=== PATIENT | female | born 1945 | race Caucasian/White ===

== ENCOUNTER → 2018-12-28 | Outpatient (CLI) | payer MEDICARE ==
--- NOTE | 2018-12-28 12:02 | CT ---
EXAMINATION TYPE: CT chest wo con DATE OF EXAM: 12/28/2018 COMPARISON: HISTORY: Increasing SOB CT DLP: 588.6 mGycm. Automated Exposure Control for Dose Reduction was Utilized. TECHNIQUE: CT scan of the thorax is performed without IV contrast. FINDINGS: LUNGS: There is a 7 mm calcified granuloma left lower lobe. Central and basilar bronchiectasis noted. Linear changes involving the lungs are most typical of atelectasis or scar. No significant interlobu lar septal thickening. Apical pleural thickening or scarring. No pneumothorax or pleural effusion. Atherosclerotic change aorta and coronary artery calcification noted. No diagnostic evidence of aneur ysm of the aorta. Upper abdominal structures demonstrate no definite acute process.. MEDIASTINUM: Lack of IV contrast is noted to limit evaluation for mediastinal and especially hilar ad enopathy. There are no definitive greater than 1 cm hilar or mediastinal lymph nodes. No cardiomega ly or pericardial effusion is seen. OTHER: Postsurgical change left shoulder.. IMPRESSION: 1. Mild Central and basilar bronchiectasis with no diagnostic evidence of interstitial lung disease. 2. Left lower lobe calcified granuloma 3. Coronary artery calcification.
== END | disposition home or self-care (01) ==
LOC: RADCTMAIN 11:20
PROVIDERS: ATTEND Internal Medicine Critical Care Medicine
DX: J47.9 Bronchiectasis, uncomplicated (principal); J84.10 Pulmonary fibrosis, unspecified; I25.10 Atherosclerotic heart disease of native coronary artery without angina pectoris; Z88.8 Allergy status to other drugs, medicaments and biological substances
CPT/HCPCS: 71250

== ENCOUNTER 2020-08-08 08:40 | Day surgery (SDC) | payer MEDICARE ==
[2020-08-07 12:39] VITALS: BMI 29.5
[2020-08-08 08:57] VITALS: TEMP 98.1
[2020-08-08] MEDS ORDERED: LIDOCAINE 1% (10MG/ML) FOR IV START INTRADERMA ONE (09:08)
[2020-08-08] MEDS ORDERED: LACTATED RINGERS 1,000 ML IV ONE (09:08)
[2020-08-08] MEDS ORDERED: PROPOFOL 10 MG/ML 20 ML VIAL IV ONE (09:33)
--- NOTE | 2020-08-08 09:49 | P.PCN ---
Date of Procedure: 08/08/20 Procedure(s) Performed: BRIEF HISTORY: Patient is a 75-year-old pleasant female scheduled for an elective colonoscopy as a part of screening for colorectal neoplasia. Her last colonoscopy was 10 years ago. PROCEDURE PERFORMED: Colonoscopy. With snare polypectomy. PREOPERATIVE DIAGNOSIS: Screening for colon cancer. IV sedation per Anesthesia. PROCEDURE: After informed consent was obtained, the patient, was brought into the endoscopy unit. IV sedation was administered by Anesthesia under continuous monitoring. Digital rectal examination was normal. Initially the Olympus CF-160 flexible video colonoscope was then inserted in the rectum, gradually advanced into the cecum without any difficulty. Careful examination was performed as the scope was gradually being withdrawn. Ileocecal valve and the appendiceal orifice were visualized and appeared normal. Prep was excellent. Mucosa of the cecum, ascending colon, appeared normal. The transverse colon there was a 5 mm sessile polyp removed by snare polypectomy. Rest of the transverse colon, descending colon, sigmoid colon, and rectum appeared normal. Scattered left sided diverticulosis seen. Retroflexion was performed in the rectum and no lesions were seen. The patient tolerated the procedure well. IMPRESSION: 5 mm sessile transverse colon polyp status post polypectomy Scattered sigmoid diverticulosis RECOMMENDATIONS: Findings of this examination were discussed with the patient as well as a family.. She was advised to follow with the biopsy results. If the biopsy shows an adenoma she can have a repeat colonoscopy in 5 years.
[2020-08-08 10:07] VITALS: BP 134/74; PULSE 73; RESP 20
== END 2020-08-08 10:45 | disposition home or self-care (01) ==
LOC: ORWHC2ENDO 08:40
PROVIDERS: ATTEND Internal Medicine Gastroenterology
DX: Z12.11 Encounter for screening for malignant neoplasm of colon (principal); D12.3 Benign neoplasm of transverse colon; K57.30 Diverticulosis of large intestine without perforation or abscess without bleeding; I10 Essential (primary) hypertension; E78.5 Hyperlipidemia, unspecified; J45.909 Unspecified asthma, uncomplicated; F41.9 Anxiety disorder, unspecified; F32.9 Major depressive disorder, single episode, unspecified; Z79.890 Hormone replacement therapy; Z79.899 Other long term (current) drug therapy; Z88.8 Allergy status to other drugs, medicaments and biological substances; Z98.890 Other specified postprocedural states
CPT/HCPCS: 88305; 45385; J2704

== ENCOUNTER → 2021-10-21 | Outpatient (CLI) | payer MEDICARE ==
[2021-10-21 10:08] VITALS: BP 130/79; PULSE 77; RESP 18; TEMP 97.9
--- NOTE | 2021-10-21 13:16 | P.HPOB ---
History of Present Illness H&P Date: 10/21/21 Chief Complaint: The patient is here for her routine gynecologic exam. This is a 76-year-old 013 with an LMP of 1997. The patient is here to establish with this office. It has been about 10 years since her last pelvic exam. She previously saw Dr. Chan for her gynecologic care. She states about 2 weeks ago she had a small amount of bleeding from the vaginal opening. During a scan of 3 days, she had a few drops of blood noted each day. Prior to that time she did not have any postmenopausal bleeding and has not had any since then. She denies any pain or cramping. She denies any recent sexual activity. She denies inserting anything into the vagina or any trauma. Review of Systems The patient's weight has been stable over the last year. Over the past 11 years, she thinks she has gained about 40 pounds. She denies respiratory, cardiac, or G.I. problems. She denies any symptoms of depression. 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 History of Any Multi-Drug Resistant Organisms: None Reported Past Surgical History: Orthopedic Surgery Additional Past Surgical History / Comment(s): rt shoulder rotator cuff, colonoscopy 2020(next after 5yr). Past Anesthesia/Blood Transfusion Reactions: Motion Sickness Additional Past Anesthesia/Blood Transfusion Reaction / Comment(s): "hard time waking me up" Past Psychological History: Anxiety Additional Psychological History / Comment(s): OCD Smoking Status: Never smoker Past Alcohol Use History: None Reported Past Drug Use History: None Reported Additional History: She has been since 1969 and is not sexually active. 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 - Past Family History Mother Family Medical History: Cancer Additional Family Medical History / Comment(s): Pancreatic cancer. Father Family Medical History: Myocardial Infarction ([place]) Brother(s) Family Medical History: Cancer Additional Family Medical History / Comment(s): Lung cancer. Medications and Allergies Home Medications Medication Instructions Recorded Confirmed Type Fluticasone/Salmeterol [Advair 1 puff INHALATION BID 04/14/14 10/21/21 History 100-50 Diskus] Levothyroxine Sodium [Synthroid] 88 mcg PO DAILY 04/14/14 10/21/21 History Liothyronine Sodium [Cytomel] 5 mcg PO DAILY 04/14/14 10/21/21 History Cetirizine HCl [Zyrtec] 10 mg PO DAILY 01/05/15 10/21/21 History ALPRAZolam [Xanax] 0.5 mg PO HS 08/07/20 10/21/21 History Atorvastatin [Lipitor] 20 mg PO HS 08/07/20 10/21/21 History Azelastine HCl [Astepro] 1 spray NASAL DAILY 08/07/20 10/21/21 History FLUoxetine HCL [Sarafem] 60 mg PO HS 08/07/20 10/21/21 History Metoprolol Succinate (ER) [Toprol 25 mg PO DAILY 08/07/20 10/21/21 History Xl] Naltrexone HCl [Revia] 50 mg PO BID 08/07/20 10/21/21 History hydrOXYzine HCL [Atarax] 25 mg PO BID 08/07/20 10/21/21 History Calcium Carb/Vitamin D3/Vit K1 1 cap PO DAILY 10/21/21 10/21/21 History [Citracal-D3 500 mg Soft Chew] Cholecalciferol [Vitamin D3 (25 25 mcg PO DAILY 10/21/21 10/21/21 History Mcg = 1000 Iu)] Clobetasol Propionate [Clobex .05% 1 pump TOPICAL DIRECTED 10/21/21 10/21/21 History Shampoo] Fluticasone Propion/Salmeterol 1 inhalation PO DAILY 10/21/21 10/21/21 History [Wixela 100-50 Inhub] Magnesium 250 mg PO DAILY 10/21/21 10/21/21 History Phentermine/Topiramate [Qsymia 7.5 1 cap PO QAM 10/21/21 10/21/21 History mg-46 mg Capsule] Zinc Gluconate [Zinc] 18.75 mg PO DIRECTED 10/21/21 10/21/21 History guaiFENesin [Mucinex] 600 mg PO DAILY 10/21/21 10/21/21 History Allergies Allergy/AdvReac Type Severity Reaction Status Date / Time diphenhydramine HCl Allergy Rapid Verified 10/21/21 10:02 [From Benadryl] Heart Rate pollen,dust,grass,mold Allergy Unknown Uncoded 10/21/21 10:02 Exam Vital Signs Temp Pulse Resp BP Pulse Ox 10/21/21 10:03 97.9 F 77 18 130/79 96 Intake and Output 10/20/21 10/21/21 10/21/21 22:59 06:59 14:59 Other: Weight 86.636 kg Height 5 feet 5 inches, weight 191 pounds, BMI 31.8. This is a well-developed well-nourished white female who is alert and oriented times 3 in no acute distress. HEENT: Within normal limits. NECK: Supple without mass or thyromegaly. CHEST AND LUNGS: Clear to auscultation. HEART: Regular rate and rhythm. BREASTS: Are without mass or discharge. AXILLARY EXAM: Negative for adenopathy. BACK: Negative for CVA tenderness. ABDOMEN: Soft, nontender, without palpable masses. PELVIC EXAM: Normal external genitalia with mild to moderate atrophy. At the urethral opening there is flush she tissue which is segmental (not circumferential) along the posterior aspect. It is about 1 cm in its largest dimension. The color this tissue is reddish-brown and has a benign appearance. The tissue is soft and nontender. Cervix and vagina appear normal with mild to moderate atrophy. There is no unusual discharge. There is no evidence of prolapse. There is no evidence of blood in the vagina. The uterus is midposition, nongravid size and nontender. There are no palpable adnexal masses or tenderness. RECTAL EXAM: Rectovaginal exam is negative for mass or tenderness and is nega tive for occult blood. EXTREMITIES: Nontender. IMPRESSION: 1. 76-year-old menopausal female with a small amount of postmenopausal bleeding 2 weeks ago. 2. 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 Differential diagnosis for this finding would also include urethral prolapse, and less likely other urethral neoplasm. 3. Differential diagnosis for the small postmenopausal bleeding will include bleeding periurethral tissue, uterine bleeding, vaginal mucosa bleeding from atrophy, and less likely hematuria or blood from the rectum. I feel that most likely the bleeding represented a small amount of blood from the urethral caruncle. PLAN: 1. Pap smear cotest was performed. Her cervical screening history is uncertain at this time. 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 Chan for any Pap smears that were done during the past 20 years. We will determine if Pap smears can be discontinued after the records and current Pap smear results are obtained. 2. Self breast awareness was discussed with the patient. We have also discussed symptoms associated with inflammatory breast cancer. 3. The patient states she had a screening mammogram done last week at [facility]. She states she will try to get me a copy of the report. I have recommended that she have this done yearly. 4. Pelvic ultrasound was recommended to evaluate the endometrial thickness. The order slip was given to the patient for this. 5. We have discussed the tissue at the urethral opening. She was advised to very gently dab the opening, if needed, after voiding. She will be referred to Dr. Quinn, the urologist, who took care of her 's urological problems. I will have him evaluate the periurethral tissue to determine if biopsy or removal is warranted. 6.Osteoporosis prevention was discussed. I have stressed the importance of adequate calcium, vitamin D and regular exercise. Recommended amounts of calcium and vitamin D were also discussed. She states bone density testing has been done through her radio journalist, Dr. Ly. She will continue to have this type of testing done through him. 7. She has completed her Covid vaccination series and did receive a booster. 8. Weight control was discussed with the patient. I have stressed the importance of good nutrition, regular meals, adequate fiber, and regular exercise. 9. She was advised to return in one year for her annual well woman exam and as needed.
== END ==
LOC: WWCWWP 09:52
PROVIDERS: ATTEND Obstetrics & Gynecology
DX: Z01.419 Encounter for gynecological examination (general) (routine) without abnormal findings (principal); I10 Essential (primary) hypertension; E03.9 Hypothyroidism, unspecified; J45.909 Unspecified asthma, uncomplicated; E78.5 Hyperlipidemia, unspecified; F41.9 Anxiety disorder, unspecified; Z79.890 Hormone replacement therapy; Z88.8 Allergy status to other drugs, medicaments and biological substances; Z91.09 Other allergy status, other than to drugs and biological substances; N95.0 Postmenopausal bleeding; Z78.0 Asymptomatic menopausal state

== ENCOUNTER → 2021-11-09 | Outpatient (CLI) | payer MEDICARE ==
--- NOTE | 2021-11-09 21:32 | US ---
EXAMINATION TYPE: US pelvic complete DATE OF EXAM: 11/09/2021 COMPARISON: NONE CLINICAL HISTORY: N95.0 PMB. Postmenopausal bleeding. Hx 1 miscarriage. . TECHNIQUE: Transvaginal (TV) and Transabdominal (TA) . Transabdominal sonographic images of the pel vis were acquired. Transvaginal sonographic images were medically necessary to better assess the fol lowing anatomy: Ovaries, endometrium. Date of LMP: EXAM MEASUREMENTS: Uterus: 5.6 x 4.1 x 2.8 cm Endometrial Stripe: 0.23 cm Right Ovary: 2.9 x 2.2 x 2.5 cm Left Ovary: Obscured 1. Uterus: Anteverted Appears very heterogeneous. Limited due to shadowing. Many hyperechoic areas seen throughout the uterus. Largest hyperechoic area measures 0.4 x 0.4 x 0.3 cm. Subcentimeter anec hoic areas seen in cervix. 2. Endometrium: Anechoic fluid-appearing area seen within: 0.8 x 0.9 x 0.2 cm. 3. Right Ovary: Anechoic area seen: 1.9 x 2.0 x 2.1 cm. 4. Left Ovary: Obscured. 5. Bilateral Adnexa: Appear wnl 6. Posterior cul-de-sac: Appears wnl Uterus somewhat small in size and poorly visualized on both transabdominal and transvaginal investiga tion. It is markedly heterogeneous. Endometrial stripe not well seen. Hypoechoic areas could reflect small subcentimeter fibroids. Some dystrophic calcifications are thought present. No abnormal endomet rial thickening. Tiny amount of fluid in the endometrial canal. Left ovary not identified. Right ovary shows 2.1 cm thin-walled cyst. IMPRESSION: No suspicious thickening of the endometrium.
--- NOTE | 2021-11-10 10:32 | P.PN ---
Progress Note - Text Progress Note Date: 11/10/21 OUTPATIENT FOLLOW-UP NOTE TEST(S)/RESULTS: Pelvic ultrasound done on 11/09/2021 shows normal endometrial thickness of 2.3 mm. Small amount of fluid was noted within the endometrium. There was also a 2.1 cm right ovarian cyst which appears benign. METHOD OF NOTIFICATION: The patient was notified by phone. PATIENT COMMENTS: The patient did see Dr. Quinn who recommended an ultrasound of her kidneys and bladder scheduled for later this month. DIAGNOSIS: Small postmenopausal bleeding with no endometrial thickening. Small amount of fluid within the endometrium and 2.1 cm right ovarian cyst which are most likely benign findings. DISCUSSION: PLAN: Await evaluation by Dr. Quinn for possible hematuria. She is to wipe over the urinary opening very gently. We will plan on repeating pelvic ultrasound in one year to reevaluate the ovarian cyst.
== END | disposition home or self-care (01) ==
LOC: RADUSWWP 15:26
PROVIDERS: ATTEND Obstetrics & Gynecology
DX: N95.0 Postmenopausal bleeding (principal)
CPT/HCPCS: 76830; 76856

== ENCOUNTER → 2021-11-19 | Outpatient (CLI) | payer MEDICARE ==
--- NOTE | 2021-11-20 07:15 | US ---
EXAMINATION TYPE: US kidneys/renal and bladder DATE OF EXAM: 11/19/2021 COMPARISON: NONE CLINICAL HISTORY: R31.0 GROSS HEMATURIA. hematuria EXAM MEASUREMENTS: Right Kidney: 8.4 x 3.5 x 4.1 cm Left Kidney: 10.6 x 4.9 x 4.8 cm Right Kidney: small in size Left Kidney: no evidence of hydronephrosis Bladder: not fully distended Bilateral Jets seen: no There is no evidence for hydronephrosis at this point in time. No nephrolithiasis is seen. No peggy s are identified. The urinary bladder is anechoic. Bilateral ureteral jets are seen. IMPRESSION: Diminutive right kidney.
== END | disposition home or self-care (01) ==
LOC: RADUSWWP 15:30
PROVIDERS: ATTEND Urology
DX: N27.0 Small kidney, unilateral (principal)
CPT/HCPCS: 76770

== ENCOUNTER → 2022-11-09 | Outpatient (CLI) | payer MEDICARE ==
[2022-11-09 09:23] VITALS: BP 123/70; PULSE 79; RESP 16; TEMP 97
--- NOTE | 2022-11-09 10:10 | P.HPOB ---
History of Present Illness H&P Date: 11/09/22 Chief Complaint: The patient is here for her routine gynecologic exam and ma mmogram. This is a 77-year-old 013 with an LMP of 1997. The patient is without gynecologic complaints and denies any postmenopausal bleeding. Review of Systems The patient is unsure of her weight and states she no seen needs to lose weight. She declined being weighed today. She denies respiratory, cardiac, or GI problems. She recently got over bronchitis and is doing better. 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 Seasonal ALLERGIES. 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 History of Any Multi-Drug Resistant Organisms: None Reported Past Surgical History: Orthopedic Surgery Additional Past Surgical History / Comment(s): rt shoulder rotator cuff. Colonoscopy 2020(next after 5yr). Past Anesthesia/Blood Transfusion Reactions: Motion Sickness Additional Past Anesthesia/Blood Transfusion Reaction / Comment(s): "hard time waking me up" Past Psychological History: Anxiety Additional Psychological History / Comment(s): OCD Smoking Status: Never smoker Past Alcohol Use History: Rare (4 per year.) Past Drug Use History: None Reported Additional History: She has been since 1970 and is not sexually active. 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 - Past Family History Mother Family Medical History: Cancer Additional Family Medical History / Comment(s): Pancreatic cancer. Father Family Medical History: Myocardial Infarction ([place]) Brother(s) Family Medical History: Cancer Additional Family Medical History / Comment(s): Lung cancer. Medications and Allergies Home Medications Medication Instructions Recorded Confirmed Type Levothyroxine Sodium [Synthroid] 88 mcg PO DAILY 04/14/14 11/09/22 History Liothyronine Sodium [Cytomel] 5 mcg PO DAILY 04/14/14 11/09/22 History Cetirizine HCl [Zyrtec] 10 mg PO DAILY 01/05/15 11/09/22 History ALPRAZolam [Xanax] 0.5 mg PO HS 08/07/20 11/09/22 History Atorvastatin [Lipitor] 20 mg PO HS 08/07/20 11/09/22 History Azelastine HCl [Astepro] 1 spray NASAL DAILY 08/07/20 11/09/22 History FLUoxetine HCL [Sarafem] 60 mg PO HS 08/07/20 11/09/22 History Metoprolol Succinate (ER) [Toprol 25 mg PO DAILY 08/07/20 11/09/22 History Xl] Naltrexone HCl [Revia] 50 mg PO BID 08/07/20 11/09/22 History hydrOXYzine HCL [Atarax] 25 mg PO BID 08/07/20 11/09/22 History Calcium Carb/Vitamin D3/Vit K1 1 cap PO DAILY 10/21/21 11/09/22 History [Citracal-D3 500 mg Soft Chew] Cholecalciferol [Vitamin D3 (25 25 mcg PO DAILY 10/21/21 11/09/22 History Mcg = 1000 Iu)] Clobetasol Propionate [Clobex .05% 1 pump TOPICAL DIRECTED 10/21/21 11/09/22 History Shampoo] Fluticasone Propion/Salmeterol 1 inhalation PO DAILY 10/21/21 11/09/22 History [Wixela 100-50 Inhub] Magnesium 250 mg PO DAILY 10/21/21 11/09/22 History Phentermine/Topiramate [Qsymia 7.5 1 cap PO QAM 10/21/21 11/09/22 History mg-46 mg Capsule] Zinc Gluconate [Zinc] 18.75 mg PO DIRECTED 10/21/21 11/09/22 History guaiFENesin [Mucinex] 600 mg PO DAILY 10/21/21 11/09/22 History Inulin/Chromium Picolinate [Fiber 1 tab PO DAILY 11/09/22 11/09/22 History Gummies Chew] Multivitamin [Multivitamins Adult 1 tablet PO DAILY 11/09/22 11/09/22 History Gummies] Turmeric Root Extract [Turmeric] 500 mg PO DAILY 11/09/22 11/09/22 History Vitamin B Complex 1 cap PO DAILY 11/09/22 11/09/22 History Allergies Allergy/AdvReac Type Severity Reaction Status Date / Time diphenhydramine HCl Allergy Rapid Verified 11/09/22 09:07 [From Benadryl] Heart Rate pollen,dust,grass,mold Allergy Unknown Uncoded 11/09/22 09:07 Exam Vital Signs Temp Pulse Resp BP Pulse Ox 11/09/22 09:09 97.0 F L 79 16 123/70 95 Height and weight were refused by the patient. This is a well-developed well-nourished white female who is alert and oriented times 3 in no acute distress. HEENT: Within normal limits. NECK: Supple without mass or thyromegaly. CHEST AND LUNGS: Clear to auscultation. HEART: Regular rate and rhythm. BREASTS: Are without mass or discharge. AXILLARY EXAM: Negative for adenopathy. BACK: Negative for CVA tenderness. ABDOMEN: Soft, nontender, without palpable masses. PELVIC EXAM: Normal external genitalia with mild to moderate atrophy. There is a urethral caruncle which appears benign and unchanged. This does not appear inflamed. Cervix and vagina appear normal is mild to moderate atrophy. There is no unusual discharge. There is no evidence of prolapse. The uterus is midposition, nongravid size and nontender. There are no palpable adnexal masses or tenderness. RECTAL EXAM: Rectovaginal exam is negative for mass or tenderness and is negative for occult blood. EXTREMITIES: Nontender. IMPRESSION: 1. 77-year-old menopausal female with benign-appearing urethral caruncle which is unchanged. Otherwise unremarkable gynecologic exam. 2. History of benign-appearing 2.1cm right ovarian cyst and small endometrial fluid by ultrasound on 11/09/2021. PLAN: 1. Pap smears have been discontinued. 2. Self breast awareness was discussed with the patient. We have also discussed symptoms associated with inflammatory breast cancer. 3. Screening mammogram will be done today. 4. Pelvic ultrasound was recommended as follow-up for the os menopausal right ovarian cyst and endometrial fluid noted on her 11/09/21 ultrasound. The order slip was given to the patient for this. 5. Osteoporosis prevention was discussed. I have stressed the importance of adequate calcium, vitamin D and regular exercise. Recommended amounts of calcium and vitamin D were also discussed. She states she has done bone density testing through her quilt maker and the last one was about 5 years ago and was normal, according to the patient. She would like to have this testing done through me in the future. We will plan on repeating the bone density test here in 1 year at her annual well woman exam. 6. She was advised to return in one year for her annual well woman exam.
--- NOTE | 2022-11-10 09:23 | MM ---
Reason for Exam: Screening (asymptomatic). Last mammogram was performed 1 year(s) and 1 month(s) ago. Patient History: Menarche at age 13. First Full-Term at age 30. Late child-bearing (after 30). Postmenopausal. Patient has history of breast feeding. Estrogen and Progesterone, starting at age 51 for 5 years. Risk Values: Hillary 5 year model risk: 2.4%. NCI Lifetime model risk: 4.6%. Prior Study Comparison: 07/21/2018 Bilateral MG 3D screening mammo w/cad, [facility]. 09/23/2020 Bilateral MG 3D screening mammo w/cad, [facility]. 10/15/2021 Bilateral MG 3D screening mammo w/cad, [facility]. Tissue Density: The breast tissue is heterogeneously dense. This may lower the sensitivity of mammography. Findings: Analyzed By CAD. There are benign-appearing round and linear calcifications bilaterally redemonstrated. Asymmetric prominent tissue anterior upper right breast mimicking distortion has similar appearance to prior mammograms. There is no suspicious group of microcalcifications or new suspicious mass in either breast. Overall Assessment: Benign, BI-RAD 2 Management: Screening Mammogram of both breasts in 1 year. . Patient should continue monthly self-breast exams. A clinical breast exam by your physician is recommended on an annual basis. This exam should not preclude additional follow-up of suspicious palpable abnormalities. Note on Hillary scores and lifetime risk: 1. A Hillary score greater than 3% is considered moderate risk. If this is the case, consider specialist referral to assess eligibility for a risk reducing agent. 2. If overall lifetime risk for the development of breast cancer is 20% or higher, the patient may qualify for future screening with alternating mammogram and breast MRI. Electronically signed and approved by: Federico Minaya M.D.
== END ==
LOC: WWCWWP 09:01
PROVIDERS: ATTEND Obstetrics & Gynecology
DX: Z12.31 Encounter for screening mammogram for malignant neoplasm of breast (principal); Z01.419 Encounter for gynecological examination (general) (routine) without abnormal findings; E03.9 Hypothyroidism, unspecified; E78.5 Hyperlipidemia, unspecified; F41.9 Anxiety disorder, unspecified; F42.9 Obsessive-compulsive disorder, unspecified; I10 Essential (primary) hypertension; J45.909 Unspecified asthma, uncomplicated; N36.2 Urethral caruncle; Z79.51 Long term (current) use of inhaled steroids; Z80.1 Family history of malignant neoplasm of trachea, bronchus and lung; Z82.49 Family history of ischemic heart disease and other diseases of the circulatory system; Z88.8 Allergy status to other drugs, medicaments and biological substances; Z79.890 Hormone replacement therapy
CPT/HCPCS: 77063; 77067

== ENCOUNTER → 2022-11-25 | Outpatient (CLI) | payer MEDICARE ==
--- NOTE | 2022-11-26 06:31 | US ---
EXAMINATION TYPE: US pelvis complete transvag DATE OF EXAM: 11/25/2022 COMPARISON: Pelvic ultrasound November 09, 2021 CLINICAL INDICATION: Female, 77 years old with history of N83.00 CYST OF OVARY; Follow up ovarian cys t. TECHNIQUE: Transvaginal (TV) and Transabdominal (TA) . Transabdominal sonographic images of the pel vis were acquired. 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 Uterus: Retroverted Appears small in size. Heterogenous. Peripheral echogenic foci seen. 2. Endometrium: wnl 3. Right Ovary: cystic appearing lesion - 2.3 x 2.0 x 2.0 cm 4. Left Ovary: Obscured by overlying bowel gas 5. Bilateral Adnexa: wnl 6. Posterior cul-de-sac: no free fluid Small size uterus correlates with patient's postmenopausal age. Some dystrophic calcifications are fe lt present. Endometrial stripe poorly visualized. No free fluid. Left ovary not seen. Right ovary has fairly stable 2.3 x 2.0 x 2.0 cm simple appearing thin-walled cy st. IMPRESSION: Stable 2.3 cm thin-walled cyst in the right adnexal presumed ovary.
== END | disposition home or self-care (01) ==
LOC: RADUSWWP 14:57
PROVIDERS: ATTEND Obstetrics & Gynecology
DX: N83.01 Follicular cyst of right ovary (principal); R93.89 Abnormal findings on diagnostic imaging of other specified body structures
CPT/HCPCS: 76830; 76856

== ENCOUNTER 2022-12-24 09:28 | Inpatient (IN) | payer MEDICARE ==
[2022-12-24] MEDS ORDERED: SODIUM CHLORIDE 0.9% 1,000 ML IV STA (09:44)
[2022-12-24] MEDS ORDERED: ONDANSETRON 4 MG/2 ML VIAL IVP STA (09:44)
[2022-12-24] MEDS ORDERED: HYDROmorphone 0.5 MG/0.5 ML SYRINGE IVP STA (09:45)
--- NOTE | 2022-12-24 09:48 | ED ---
General Adult HPI - General Chief complaint: Abdominal Pain Stated complaint: abd pain,chills Time Seen by Provider: 12/24/22 09:30 Source: patient, RN notes reviewed, old records reviewed Mode of arrival: ambulatory Limitations: no limitations - History of Present Illness Initial comments: This is 77-year-old female presents emergency department stating she has significant abdominal pain. Patient states that yesterday when she woke up and didn't feel good she vomited times one and there are 3 she remained nauseated. Patient states she's had no diarrhea. Patient states the pain is diffuse in her abdomen is no specific spot. Patient denies any fever chills. Patient denies any dysuria hematuria urinary frequency. Patient denies any chest pain shortness of breath or difficulty breathing. Patient denies any back pain. Patient states she's never had any abdominal surgeries. Patient denies lightheadedness or dizziness. - Related Data Home Medications Medication Instructions Recorded Confirmed Levothyroxine Sodium [Synthroid] 88 mcg PO DAILY 04/14/14 12/24/22 Liothyronine Sodium [Cytomel] 5 mcg PO DAILY 04/14/14 12/24/22 Cetirizine HCl [Zyrtec] 10 mg PO DAILY 01/05/15 12/24/22 ALPRAZolam [Xanax] 0.5 mg PO HS 08/07/20 12/24/22 Atorvastatin [Lipitor] 20 mg PO HS 08/07/20 12/24/22 Naltrexone HCl [Revia] 50 mg PO HS 08/07/20 12/24/22 hydrOXYzine HCL [Atarax] 25 mg PO HS 08/07/20 12/24/22 Albuterol Sulfate [Albuterol 2 puff PO RT-Q6H PRN 12/24/22 12/24/22 Sulfate Hfa] Clobetasol 0.05% Solution 1 applic TOPICAL HS PRN 12/24/22 12/24/22 Dupilumab [Dupixent Pen] 300 mg SQ Q28D 12/24/22 12/24/22 FLUoxetine HCL [PROzac] 60 mg PO DAILY 12/24/22 12/24/22 Fluticasone/Umeclidin/Vilanter 1 puff INHALATION RT-DAILY 12/24/22 12/24/22 [Trelegy Ellipta 100-62.5-25] Metoprolol Succinate (ER) [Toprol 25 mg PO DAILY 12/24/22 12/24/22 Xl] Allergies Allergy/AdvReac Type Severity Reaction Status Date / Time diphenhydramine HCl Allergy Rapid Verified 12/24/22 11:37 [From Benadryl] Heart Rate pollen,dust,grass,mold Allergy Unknown Uncoded 12/24/22 09:33 Review of Systems ROS Statement: Those systems with pertinent positive or pertinent negative responses have been documented in the HPI. ROS Other: All systems not noted in ROS Statement are negative. 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 Seasonal ALLERGIES. 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 History of Any Multi-Drug Resistant Organisms: None Reported Past Surgical History: Orthopedic Surgery Additional Past Surgical History / Comment(s): rt shoulder rotator cuff. Colonoscopy 2020(next after 5yr). Past Anesthesia/Blood Transfusion Reactions: Motion Sickness Additional Past Anesthesia/Blood Transfusion Reaction / Comment(s): "hard time waking me up" Past Psychological History: Anxiety Smoking Status: Never smoker Past Alcohol Use History: Rare Past Drug Use History: None Reported - Past Family History Mother Family Medical History: Cancer Additional Family Medical History / Comment(s): Pancreatic cancer. Father Family Medical History: Myocardial Infarction ([place]) Brother(s) Family Medical History: Cancer Additional Family Medical History / Comment(s): Lung cancer. General Exam - General Exam Comments Initial Comments: GENERAL: Patient is well-developed and well-nourished. Patient is nontoxic and well- hydrated and is in mild distress. ENT: Neck is soft and supple. No significant lymphadenopathy is noted. Oropharynx is clear. Moist mucous membranes. Neck has full range of motion without eliciting any pain. EYES: The sclera were anicteric and conjunctiva were pink and moist. Extraocular movements were intact and pupils were equal round and reactive to light. Eyelids were unremarkable. PULMONARY: Unlabored respirations. Good breath sounds bilaterally. No audible rales rhonchi or wheezing was noted. CARDIOVASCULAR: There is a regular rate and rhythm without any murmurs gallops or rubs. ABDOMEN: Soft and nontender with normal bowel sounds. SKIN: Skin is clear with no lesions or rashes and otherwise unremarkable. NEUROLOGIC: Patient is alert and oriented x3. Cranial nerves II through XII are grossly intact. Motor and sensory are also intact. Normal speech, volume and content. Symmetrical smile. MUSCULOSKELETAL: Normal extremities with adequate strength and full range of motion. LYMPHATICS: No significant lymphadenopathy is noted PSYCHIATRIC: Normal psychiatric evaluation. Limitations: no limitations Course Vital Signs 12/24/22 12/24/22 09:30 11:00 Temperature 97.5 F L 99.7 F H Pulse Rate 86 90 Respiratory 22 18 Rate Blood Pressure 181/80 181/87 O2 Sat by Pulse 98 97 Oximetry Medical Decision Making - Medical Decision Making Was pt. sent in by a medical professional or institution (, PA, COMPUTER ARCHITECT, urgent care, hospital, or group home...) When possible be specific @ -No Did you speak to anyone other than the patient for history (EMS, parent, family, police, friend...)? What history was obtained from this source @ -No Did you review nursing and triage notes (agree or disagree)? Why? @ -I reviewed and agree with nursing and triage notes Were old charts reviewed (outside hosp., previous admission, EMS record, old EKG, old radiological studies, urgent care reports/EKG's, group home records)? Report findings @ -I reviewed prior lab work on this patient Differential Diagnosis (chest pain, altered mental status, abdominal pain women, abdominal pain men, vaginal bleeding, weakness, fever, dyspnea, syncope, headache, dizziness, GI bleed, back pain, seizure, CVA, palpatations, mental health, musculoskeletal)? @ -Differential Abdominal Pain Women: Appendicitis, Cholecystitis, diverticulosis, ischemic bowel, pancreatitis, hepatitis, UTI, gastroenteritis, AAA, incarcerated hernia, bowel obstruction, constipation, inflammatory bowel, hepatitis, peptic ulcer disease, splenic infarction, perforated viscus, vulvitis, ovarian torsion, PID, kidney stone, placenta abruption, this is not meant to be an all-inclusive list EKG interpreted by me (3pts min.). @ -As above X-rays interpreted by me (1pt min.). @ -None done CT interpreted by me (1pt min.). @ -CT of the abdomen and pelvis show thickened bladder wall. And multiple air- fluid levels and small intestine U/S interpreted by me (1pt. min.). @ -None done What testing was considered but not performed or refused? (CT, X-rays, U/S, labs)? Why? @ -None What meds were considered but not given or refused? Why? @ -None Did you discuss the management of the patient with other professionals (professionals i.e. , PA, COMPUTER ARCHITECT, lab, RT, psych nurse, social work faculty member, braille translator, teacher, corporate responsibility officer, piano case maker)? Give summary @ -Spoke with Dr. Atkinson he agreed to admit the patient Was smoking cessation discussed for >3mins.? @ -No Was critical care preformed (if so, how long)? @ -No Were there social determinants of health that impacted care today? How? (Homelessness, low income, unemployed, alcoholism, drug addiction, transportation, low edu. Level, literacy, decrease access to med. care, correction, rehab)? @ -No Was there de-escalation of care discussed even if they declined (Discuss DNR or withdrawal of care, Hospice)? DNR status @ -No What co-morbidities impacted this encounter? (DM, HTN, Smoking, COPD, CAD, Cancer, CVA, ARF, Chemo, Hep., AIDS, mental health diagnosis, sleep apnea, morbid obesity)? @ -None Was patient admitted / discharged? Hospital course, mention meds given and route, prescriptions, significant lab abnormalities, going to OR and other pertinent info. @ -Patient had a urinary tract infection and some small intestinal fluid levels. I spoke with Dr. Atkinson after I gave the patient 2 g of Rocephin and the patient will be admitted and monitored in the hospital Undiagnosed new problem with uncertain prognosis? @ -No Drug Therapy requiring intensive monitoring for toxicity (Heparin, Nitro, Insulin, Cardizem)? @ -No Were any procedures done? @ -No Diagnosis/symptom? @ -Pyelonephritis Acute, or Chronic, or Acute on Chronic? @ -Acute Uncomplicated (without systemic symptoms) or Complicated (systemic symptoms)? @ -Complicated Side effects of treatment? @ -No Exacerbation, Progression, or Severe Exacerbation? @ -No Poses a threat to life or bodily function? How? (Chest pain, [place], [place], pneumonia, PE, COPD, DKA, ARF, appy, cholecystitis, CVA, Diverticulitis, Homicidal, Suicidal, threat to staff... and all critical care pts) @ -Yes this could lead to sepsis and end organ dysfunction Diagnosis/symptom? @ -Enteritis Acute, or Chronic, or Acute on Chronic? @ -Acute Uncomplicated (without systemic symptoms) or Complicated (systemic symptoms)? @ -Complicated Side effects of treatment? @ -none Exacerbation, Progression, or Severe Exacerbation] @ -no Poses a threat to life or bodily function? @ -no - Lab Data Result diagrams: 12/24/22 09:58 12/24/22 09:58 Lab Results 12/24/22 12/24/22 12/24/22 Range/Units 09:58 09:58 09:58 WBC 17.4 H (3.8-10.6) k/uL RBC 4.56 (3.80-5.40) m/uL Hgb 14.5 (11.4-16.0) gm/dL Hct 42.1 (34.0-46.0) % MCV 92.5 (80.0-100.0) fL MCH 31.9 (25.0-35.0) pg MCHC 34.5 (31.0-37.0) g/dL RDW 13.4 (11.5-15.5) % Plt Count 233 (150-450) k/uL MPV 7.6 Neutrophils % 80 % Lymphocytes % 8 % Monocytes % 9 % Eosinophils % 1 % Basophils % 0 % Neutrophils # 14.0 H (1.3-7.7) k/uL Lymphocytes # 1.4 (1.0-4.8) k/uL Monocytes # 1.6 H (0-1.0) k/uL Eosinophils # 0.2 (0-0.7) k/uL Basophils # 0.0 (0-0.2) k/uL Sodium 135 L (137-145) mmol/L Potassium 4.2 (3.5-5.1) mmol/L Chloride 104 (98-107) mmol/L Carbon Dioxide 20 L (22-30) mmol/L Anion Gap 11 mmol/L BUN 28 H (7-17) mg/dL Creatinine 1.30 H (0.52-1.04) mg/dL Est GFR (CKD-EPI)AfAm 46 (>60 ml/min/1.73 sqM) Est GFR (CKD-EPI)NonAf 40 (>60 ml/min/1.73 sqM) Glucose 214 H (74-99) mg/dL Plasma Lactic Acid Kory (0.7-2.0) mmol/L Calcium 9.2 (8.4-10.2) mg/dL Total Bilirubin 0.8 (0.2-1.3) mg/dL AST 27 (14-36) U/L ALT 31 (4-34) U/L Alkaline Phosphatase 106 (38-126) U/L Total Protein 6.8 (6.3-8.2) g/dL Albumin 4.0 (3.5-5.0) g/dL Amylase 44 (30-110) U/L Lipase 84 (23-300) U/L Urine Color Yellow Urine Appearance Turbid H (Clear) Urine pH 6.5 (5.0-8.0) Ur Specific [place] 1.018 (1.001-1.035) Urine Protein 2+ H (Negative) Urine Glucose (UA) Negative (Negative) Urine Ketones Negative (Negative) Urine Blood Moderate H (Negative) Urine Nitrite Negative (Negative) Urine Bilirubin Negative (Negative) Urine Urobilinogen <2.0 (<2.0) mg/dL Ur Leukocyte Esterase Large H (Negative) Urine RBC 32 H (0-5) /hpf Urine WBC >182 H (0-5) /hpf Urine WBC Clumps Many H (None) /hpf Ur Squamous Epith Cells 2 (0-4) /hpf Urine Bacteria Few H (None) /hpf Urine Mucus Rare H (None) /hpf 12/24/22 Range/Units 10:27 WBC (3.8-10.6) k/uL RBC (3.80-5.40) m/uL Hgb (11.4-16.0) gm/dL Hct (34.0-46.0) % MCV (80.0-100.0) fL MCH (25.0-35.0) pg MCHC (31.0-37.0) g/dL RDW (11.5-15.5) % Plt Count (150-450) k/uL MPV Neutrophils % % Lymphocytes % % Monocytes % % Eosinophils % % Basophils % % Neutrophils # (1.3-7.7) k/uL Lymphocytes # (1.0-4.8) k/uL Monocytes # (0-1.0) k/uL Eosinophils # (0-0.7) k/uL Basophils # (0-0.2) k/uL Sodium (137-145) mmol/L Potassium (3.5-5.1) mmol/L Chloride (98-107) mmol/L Carbon Dioxide (22-30) mmol/L Anion Gap mmol/L BUN (7-17) mg/dL Creatinine (0.52-1.04) mg/dL Est GFR (CKD-EPI)AfAm (>60 ml/min/1.73 sqM) Est GFR (CKD-EPI)NonAf (>60 ml/min/1.73 sqM) Glucose (74-99) mg/dL Plasma Lactic Acid Kory 1.3 (0.7-2.0) mmol/L Calcium (8.4-10.2) mg/dL Total Bilirubin (0.2-1.3) mg/dL AST (14-36) U/L ALT (4-34) U/L Alkaline Phosphatase (38-126) U/L Total Protein (6.3-8.2) g/dL Albumin (3.5-5.0) g/dL Amylase (30-110) U/L Lipase (23-300) U/L Urine Color Urine Appearance (Clear) Urine pH (5.0-8.0) Ur Specific [place] (1.001-1.035) Urine Protein (Negative) Urine Glucose (UA) (Negative) Urine Ketones (Negative) Urine Blood (Negative) Urine Nitrite (Negative) Urine Bilirubin (Negative) Urine Urobilinogen (<2.0) mg/dL Ur Leukocyte Esterase (Negative) Urine RBC (0-5) /hpf Urine WBC (0-5) /hpf Urine WBC Clumps (None) /hpf Ur Squamous Epith Cells (0-4) /hpf Urine Bacteria (None) /hpf Urine Mucus (None) /hpf Disposition Clinical Impression: Pyelonephritis, Ileus Disposition: ADMITTED IP TO THIS HOSP Referrals: None,Stated [REFERRING] - 1-2 days Time of Disposition: 12:14
[2022-12-24 10:12] LABS: Basophils % (A) 0 %; Eosinophils # (A) 0.2 k/uL (0-0.7); Eosinophils % (A) 1 %; HCT 42.1 % (34.0-46.0); HGB 14.5 gm/dL (11.4-16.0); Lymphocytes # (A) 1.4 k/uL (1.0-4.8); Lymphocytes % (A) 8 %; MCH 31.9 pg (25.0-35.0); MCHC 34.5 g/dL (31.0-37.0); MCV 92.5 fL (80.0-100.0); Mean Platelet Volume 7.6; Monocytes # (A) 1.6 k/uL (0-1.0); Monocytes % (A) 9 %; Neutrophils % (A) 80 %; Platelet Count 233 k/uL (150-450); RBC 4.56 m/uL (3.80-5.40); RDW 13.4 % (11.5-15.5); WBC 17.4 k/uL (3.8-10.6)
[2022-12-24 10:17] LABS: Appearance,Urine Turbid (Clear); Bacteria,Urine Few /hpf; Bilirubin,Urine Negative (Negative); Blood,Urine Moderate (Negative); Color,Urine Yellow; Glucose,Urine (UA) Negative (Negative); Ketones,Urine Negative (Negative); Leukocyte Esterase,Urine Large (Negative); Mucus,Urine Rare /hpf; Nitrite,Urine Negative (Negative); PH, Urine 6.5 (5.0-8.0); Protein,Urine 2+ (Negative); RBC,Urine 32 /hpf (0-5); Specific Gravity,Urine 1.018 (1.001-1.035); Squamous Epithelial Cell,Urine 2 /hpf (0-4); Urobilinogen,Urine <2.0 mg/dL (<2.0); WBC,Urine >182 /hpf (0-5)
[2022-12-24 10:21] LABS: ALT 31 U/L (4-34); AST 27 U/L (14-36); African American GFR (CKD) 46 (>60 ml/min/1.73 sqM); Alkaline Phosphatase 106 U/L (38-126); Amylase 44 U/L (30-110); Anion Gap 11 mmol/L; Blood Urea Nitrogen 28 mg/dL (7-17); Calcium 9.2 mg/dL (8.4-10.2); Carbon Dioxide 20 mmol/L (22-30); Chloride 104 mmol/L (98-107); Glucose 214 mg/dL (74-99); Lipase 84 U/L (23-300); Non-African American GFR(CKD) 40 (>60 ml/min/1.73 sqM); Potassium 4.2 mmol/L (3.5-5.1); Sodium 135 mmol/L (137-145); Total Bilirubin 0.8 mg/dL (0.2-1.3); Total Protein 6.8 g/dL (6.3-8.2)
--- NOTE | 2022-12-24 11:17 | CT ---
EXAMINATION TYPE: CT abdomen pelvis wo con DATE OF EXAM: 12/24/2022 COMPARISON: None HISTORY: 77-year-old female abdominal pain, Stomach pains, bloating, headache, feeling terrible CT DLP: 898.7 mGycm. Automated exposure control for dose reduction was used. TECHNIQUE: Contiguous axial scanning of the abdomen and pelvis without IV contrast. Coronal and sagit terrance reconstructions performed. FINDINGS: LUNG BASES: Coronary artery calcifications. Calcified granuloma left base. Strandy areas of atelectas is. No pleural effusion. LIVER/GB: No significant abnormality is appreciated. PANCREAS: No significant abnormality is seen. SPLEEN: Inferior hilar splenule. ADRENALS: No significant abnormality is seen. KIDNEYS: Mild perinephric stranding somewhat asymmetrically greater on the right. No hydronephrosis. BOWEL: Small hiatal hernia. Mild stool burden. Mildly redundant sigmoid colon. Segment of normal appe ndix noted. No pericolonic inflammatory change. Some prominent fluid-filled small bowel loops contain ing low in the pelvis. No dilated small bowel. LYMPH NODES: No significant abnormality is seen. OTHER: Moderate atherosclerotic calcifications infrarenal abdominal aorta. No free fluid or free air. PELVIS: Mild circumferential bladder wall thickening. Multiple pelvic phleboliths. Uterus anteverted. There is a 2.7 cm dominant follicle or functional cyst of the right ovary. BONES: Scattered moderate degenerative disc disease lower thoracic spine and L5-S1. Hypertrophic face t arthropathy with grade 1 anterolisthesis L4-L5. Mild degenerative change of both hips. IMPRESSION: 1. Small hiatal hernia. 2. Mild circumferential bladder wall thickening could be chronic for the patient. Correlate to exclu de cystitis. 3. Numerous fluid-filled small bowel loops in the pelvis may be transient. Consider a regional ileus or enteritis. 4. Some perinephric fat stranding could reflect underlying chronic kidney disease or senescent [place] e. However, the stranding is asymmetric to the right. Correlate to exclude the possibility of underly ing infection.
[2022-12-24] MEDS ORDERED: cefTRIAXone IN SWFI 1,000 MG/10 ML SYRINGE IVP STA (11:44)
[2022-12-24] MEDS ORDERED: ASPIRIN-ACET-CAFF 250-250-65MG 1 EACH TAB PO STA (11:52)
[2022-12-24] MEDS ORDERED: KETOROLAC 15 MG/ML 1 ML VIAL IVP STA (11:52)
[2022-12-24] MEDS ORDERED: SODIUM CHLORIDE 0.9% 1,000 ML IV ONE (12:16)
[2022-12-24] MEDS ORDERED: hydrOXYzine HCL 25 MG TAB PO PRN (12:18)
[2022-12-24] MEDS ORDERED: ALBUTEROL NEBULIZED 2.5 MG/3 ML INHALATION PRN (12:18)
--- NOTE | 2022-12-24 12:28 | P.HPIM ---
History of Present Illness -year-old pleasant female came in with complaints of abdominal pain in the epigastric area as well as suprapubic area significant severe. Patient denied any diarrhea patient has been nausea today and vomited few times yesterday. Edilberto navarro denied any fever at home but had low-grade fever here and is comparing of body aches. Patient denied any recent exposure to people with sinus symptoms. Patient denied any dysuria or increased urinary frequency. Patient had a computed tomography scan of the abdomen which showed mild circumferential bladder wall thickening which can be chronic or can be acute cystitis and numerous fluid-filled small bowel loops consistent with gastroenteritis and there is also some perinephric fat stranding which can be secondary to chronic kidney disease rather than pyelonephritis. Urine is significantly abnormal with highly elevated white count in the urine. REVIEW OF SYSTEMS: CONSTITUTIONAL: As mentioned in HPI HEENT: No recent visual problems or hearing problems. Denied any sore throat. CARDIOVASCULAR: No chest pain, orthopnea, PND, no palpitations, no syncope. PULMONARY: No shortness of breath, no cough, no hemoptysis. GASTROINTESTINAL: No diarrhea, no nausea, no vomiting, no abdominal pain. NEUROLOGICAL: No headaches, no weakness, no numbness. HEMATOLOGICAL: Denies any bleeding or petechiae. GENITOURINARY: Denies any burning micturition, frequency, or urgency. MUSCULOSKELETAL/RHEUMATOLOGICAL: Denies any joint pain, swelling, ENDOCRINE: Denies any polyuria or polydipsia. The rest of the 14-point review of systems is negative. PHYSICAL EXAMINATION: GENERAL: The patient is alert and oriented x3, not in any acute distress. Obese HEENT: Pupils are round and equally reacting to light. EOMI. No scleral icterus. No conjunctival pallor. Normocephalic, atraumatic. No pharyngeal erythema. No thyromegaly. CARDIOVASCULAR: S1 and S2 present. No murmurs, rubs, or gallops. PULMONARY: Chest is clear to auscultation, no wheezing or crackles. ABDOMEN: Soft, nontender, nondistended, normoactive bowel sounds. No palpable organomegaly. MUSCULOSKELETAL: No joint swelling or deformity. EXTREMITIES: No cyanosis, clubbing, or pedal edema. NEUROLOGICAL: Gross neurological examination did not reveal any focal deficits. SKIN: No rashes. Assessment and plan 1 possible sepsis: Secondary to viral gastroenteritis or urinary tract infection patient was started on IV fluids with the the symptoms of fever and body aches with Tylenol. I cannot rule out urinary tract infection, patient will be continued on Rocephin awaiting urine cultures and blood cultures. 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 Seasonal ALLERGIES. 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 History of Any Multi-Drug Resistant Organisms: None Reported Past Surgical History: Orthopedic Surgery Additional Past Surgical History / Comment(s): rt shoulder rotator cuff. Colonoscopy 2020(next after 5yr). Past Anesthesia/Blood Transfusion Reactions: Motion Sickness Additional Past Anesthesia/Blood Transfusion Reaction / Comment(s): "hard time waking me up" Past Psychological History: Anxiety Smoking Status: Never smoker Past Alcohol Use History: Rare Past Drug Use History: None Reported - Past Family History Mother Family Medical History: Cancer Additional Family Medical History / Comment(s): Pancreatic cancer. Father Family Medical History: Myocardial Infarction ([place]) Brother(s) Family Medical History: Cancer Additional Family Medical History / Comment(s): Lung cancer. Medications and Allergies Home Medications Medication Instructions Recorded Confirmed Type Levothyroxine Sodium [Synthroid] 88 mcg PO DAILY 04/14/14 12/24/22 History Liothyronine Sodium [Cytomel] 5 mcg PO DAILY 04/14/14 12/24/22 History Cetirizine HCl [Zyrtec] 10 mg PO DAILY 01/05/15 12/24/22 History ALPRAZolam [Xanax] 0.5 mg PO HS 08/07/20 12/24/22 History Atorvastatin [Lipitor] 20 mg PO HS 08/07/20 12/24/22 History Naltrexone HCl [Revia] 50 mg PO HS 08/07/20 12/24/22 History hydrOXYzine HCL [Atarax] 25 mg PO HS 08/07/20 12/24/22 History Albuterol Sulfate [Albuterol 2 puff PO RT-Q6H PRN 12/24/22 12/24/22 History Sulfate Hfa] Clobetasol 0.05% Solution 1 applic TOPICAL HS PRN 12/24/22 12/24/22 History Dupilumab [Dupixent Pen] 300 mg SQ Q28D 12/24/22 12/24/22 History FLUoxetine HCL [PROzac] 60 mg PO DAILY 12/24/22 12/24/22 History Fluticasone/Umeclidin/Vilanter 1 puff INHALATION RT-DAILY 12/24/22 12/24/22 History [Trelegy Ellipta 100-62.5-25] Metoprolol Succinate (ER) [Toprol 25 mg PO DAILY 12/24/22 12/24/22 History Xl] Allergies Allergy/AdvReac Type Severity Reaction Status Date / Time diphenhydramine HCl Allergy Rapid Verified 12/24/22 11:37 [From Benadryl] Heart Rate pollen,dust,grass,mold Allergy Unknown Uncoded 12/24/22 09:33 Physical Exam Vitals: Vital Signs Temp Pulse Resp BP Pulse Ox 12/24/22 11:00 99.7 F H 90 18 181/87 97 12/24/22 09:30 97.5 F L 86 22 181/80 98 Intake and Output 12/23/22 12/24/22 12/24/22 22:59 06:59 14:59 Other: Weight 86.183 kg Results CBC & Chem 7: 12/24/22 09:58 12/24/22 09:58 Labs: Abnormal Lab Results - Last 24 Hours (Table) 12/24/22 12/24/22 12/24/22 Range/Units 09:58 09:58 09:58 WBC 17.4 H (3.8-10.6) k/uL Neutrophils # 14.0 H (1.3-7.7) k/uL Monocytes # 1.6 H (0-1.0) k/uL Sodium 135 L (137-145) mmol/L Carbon Dioxide 20 L (22-30) mmol/L BUN 28 H (7-17) mg/dL Creatinine 1.30 H (0.52-1.04) mg/dL Glucose 214 H (74-99) mg/dL Urine Appearance Turbid H (Clear) Urine Protein 2+ H (Negative) Urine Blood Moderate H (Negative) Ur Leukocyte Esterase Large H (Negative) Urine RBC 32 H (0-5) /hpf Urine WBC >182 H (0-5) /hpf Urine WBC Clumps Many H (None) /hpf Urine Bacteria Few H (None) /hpf Urine Mucus Rare H (None) /hpf
[2022-12-24] MEDS: PANTOPRAZOLE 40 MG TABLET PO SCH (12:48)
[2022-12-24 13:00] LABS: Glucose,Whole Blood 197 mg/dL (70-110)
[2022-12-24] MEDS: INSULIN ASPART (NovoLOG) 100 UNIT/ML VIAL SQ SCH ×3 (13:00→21:26)
[2022-12-24] MEDS: HEPARIN SODIUM,PORCINE/PF 5,000 UNIT/0.5 ML SYRINGE SQ SCH (17:27)
[2022-12-24] MEDS: SODIUM CHLORIDE 0.9% 1,000 ML IV SCH ×2 (17:27→21:31)
[2022-12-24 17:50] LABS: Glucose,Whole Blood 219 mg/dL (70-110)
[2022-12-24] MEDS: ACETAMINOPHEN TAB 325 MG TAB PO PRN (18:14)
[2022-12-24 21:01] LABS: Glucose,Whole Blood 170 mg/dL (70-110)
[2022-12-24] MEDS: ATORVASTATIN 20 MG TAB PO SCH (21:26)
[2022-12-24] MEDS: ALPRAZolam 0.5 MG TAB PO PRN (21:40)
[2022-12-25] MEDS: HEPARIN SODIUM,PORCINE/PF 5,000 UNIT/0.5 ML SYRINGE SQ SCH ×4 (00:43→22:54)
[2022-12-25] MEDS: ACETAMINOPHEN TAB 325 MG TAB PO PRN ×4 (02:10→21:06)
[2022-12-25] MEDS: ONDANSETRON 4 MG/2 ML VIAL IVP PRN ×2 (02:53→09:09)
[2022-12-25 06:07] LABS: Glucose,Whole Blood 193 mg/dL (70-110)
[2022-12-25 06:40] LABS: Basophils % (A) 0 %; Eosinophils # (A) 0.1 k/uL (0-0.7); Eosinophils % (A) 1 %; HCT 38.7 % (34.0-46.0); HGB 12.5 gm/dL (11.4-16.0); Lymphocytes # (A) 0.9 k/uL (1.0-4.8); Lymphocytes % (A) 6 %; MCH 31.1 pg (25.0-35.0); MCHC 32.3 g/dL (31.0-37.0); MCV 96.5 fL (80.0-100.0); Mean Platelet Volume 7.9; Monocytes # (A) 1.7 k/uL (0-1.0); Monocytes % (A) 11 %; Neutrophils # (A) 11.5 k/uL (1.3-7.7); Neutrophils % (A) 80 %; Platelet Count 147 k/uL (150-450); RBC 4.01 m/uL (3.80-5.40); RDW 13.6 % (11.5-15.5); WBC 14.5 k/uL (3.8-10.6)
[2022-12-25] MEDS: INSULIN ASPART (NovoLOG) 100 UNIT/ML VIAL SQ SCH ×4 (06:42→22:53)
[2022-12-25] MEDS: LEVOTHYROXINE 88 MCG TAB PO SCH (06:42)
[2022-12-25] MEDS: PANTOPRAZOLE 40 MG TABLET PO SCH (06:42)
[2022-12-25 07:06] LABS: African American GFR (CKD) 44 (>60 ml/min/1.73 sqM); Anion Gap 6 mmol/L; Blood Urea Nitrogen 20 mg/dL (7-17); Calcium 7.6 mg/dL (8.4-10.2); Carbon Dioxide 19 mmol/L (22-30); Chloride 111 mmol/L (98-107); Glucose 182 mg/dL (74-99); Magnesium 1.9 mg/dL (1.6-2.3); Non-African American GFR(CKD) 38 (>60 ml/min/1.73 sqM); Potassium 4.3 mmol/L (3.5-5.1); Sodium 136 mmol/L (137-145)
[2022-12-25] MEDS ORDERED: NON FORMULARY DRUG (Fluticasone/Umeclidin/Vilanter [Trelegy Ellipta 100-62.5-25] 1 EACH Bl INHALATION SCH (08:00)
[2022-12-25] MEDS: IPRATROPIUM 0.5 MG/2.5 ML NEBU INHALATION SCH ×4 (08:46→22:00)
[2022-12-25] MEDS: SYMBICORT 80-4.5 MCG INHALER INHALATION SCH ×2 (08:46→21:59)
[2022-12-25] MEDS: LORATADINE 10 MG TAB PO SCH (09:10)
[2022-12-25] MEDS: FLUoxetine HCL 20 MG CAP PO SCH (09:10)
[2022-12-25] MEDS: METOPROLOL SUCCINATE (ER) 25 MG TAB.ER.24H PO SCH (09:10)
[2022-12-25] MEDS: SODIUM CHLORIDE 0.9% 1,000 ML IV SCH ×2 (09:11→17:32)
[2022-12-25 11:03] LABS: Glucose,Whole Blood 170 mg/dL (70-110)
[2022-12-25] MEDS: LIOTHYRONINE SODIUM 5 MCG TAB PO SCH (11:43)
--- NOTE | 2022-12-25 14:00 | P.PN ---
Subjective Progress Note Date: 12/25/22 -year-old pleasant female came in with complaints of abdominal pain in the epigastric area as well as suprapubic area significant severe. Patient denied any diarrhea patient has been nausea today and vomited few times yesterday. Patient denied any fever at home but had low-grade fever here and is comparing of body aches. Patient denied any recent exposure to people with sinus symptoms. Patient denied any dysuria or increased urinary frequency. Patient had a computed tomography scan of the abdomen which showed mild circumferential bladder wall thickening which can be chronic or can be acute cystitis and numerous fluid-filled small bowel loops consistent with gastroenteritis and there is also some perinephric fat stranding which can be secondary to chronic kidney disease rather than pyelonephritis. Urine is significantly abnormal with highly elevated white count in the urine. 12/25/2022 Patient is evaluated today resting in bed. Does complain of some continued mid abdomen pain worse with palpation, denies any epigastric pain, or burning like sensation. Is having bowel movements. Patient is currently on IV rocephin and urine culture is taken and pending. Blood culture reveals gram negative bacilli and has been repeated today infectious disease is consulted. Will order follow up abdominal xray to evaluation for conspitation patient doesn't have much distention there is dullness to percussion throughout. White count today is 14.5, sodium 136, BUN 20 creatinine 1.34. A1C found to be 6.8 discussed with patient and consistent with diagnosis of type 2 diabetes. Review of Systems Constitutional: Denied any fatigue denied any fever. Cardio vascular: denied any chest pain, palpitations Gastrointestinal: denied any nausea, vomiting, diarrhea has some mid abdominal pain Pulmonary: Denied any shortness of breath cough Neurologic denied any new focal deficits All inpatient medications were reviewed and appropriate changes in these medications as dictated in the interval history and assessment and plan. PHYSICAL EXAMINATION: GENERAL: The patient is alert and oriented x3, not in any acute distress. Obese HEENT: Pupils are round and equally reacting to light. EOMI. No scleral icterus. No conjunctival pallor. Normocephalic, atraumatic. No pharyngeal erythema. No thyromegaly. CARDIOVASCULAR: S1 and S2 present. No murmurs, rubs, or gallops. PULMONARY: Chest is clear to auscultation, no wheezing or crackles. ABDOMEN: Soft, nontender, nondistended, dullness to percussion normoactive bowel sounds. No palpable organomegaly. MUSCULOSKELETAL: No joint swelling or deformity. EXTREMITIES: No cyanosis, clubbing, or pedal edema. NEUROLOGICAL: Gross neurological examination did not reveal any focal deficits. SKIN: No rashes. Assessment and plan 1 Urinary tract infection with sepsis present on admission -Gram negative bacilli bacteremia -Rule out constipation/ileus -Hyperlipidemia -Hypertension -Chronic kidney disease stage 2-3: Probably secondary to hypertension -New onset diabetes mellitus type 2 with A1C of 6.8, prior A1C in 2020 6.2, and 2021 was 6.4. -Hypothyroidism GI prophylaxis: DVT prophylaxis: Subcutaneous heparin Plan Patient is continued on IV antibiotics with IV ceftriaxone and repeat blood cultures have been taken. Infectious disease will be consulted for further recommendations. Abdominal xray ordered and pending. Patient continues on s liding scale insulin and accuchecks and transition to oral medications on discharge. Does have dexcom monitor for blood glucose monitoring at home and patient already follows with Dr. Ly in the office and will follow up on discharge. Repeat labs in the AM. The impression and plan of care has been dictated by Kandi Hagen, Nurse Practitioner as directed. Dr. Morelia MD I have performed a history and physical examination and medical decision making of this patient, discussed the same with the dictator, and agree with the dictators assessment and plan as written, documented as a scribe. Based on total visit time, I have performed more than 50% of this visit. Objective - Vital Signs Vital signs: Vital Signs Temp 98.5 F 12/25/22 07:25 Pulse 82 12/25/22 12:35 Resp 16 12/25/22 07:25 BP 169/83 12/25/22 07:25 Pulse Ox 94 L 12/25/22 03:29 FiO2 Intake & Output 12/24/22 12/25/22 12/25/22 18:59 06:59 18:59 Intake Total 250 Output Total 400 Balance -150 Weight 86.183 kg Intake: Oral 250 Output: Urine 400 Other: Voiding Method Toilet # Voids 1 2 - Labs CBC & Chem 7: 12/25/22 06:10 12/25/22 06:10 Labs: Abnormal Lab Results - Last 24 Hours (Table) 12/24/22 12/24/22 12/24/22 Range/Units 09:58 17:48 20:59 WBC (3.8-10.6) k/uL Plt Count (150-450) k/uL Neutrophils # (1.3-7.7) k/uL Lymphocytes # (1.0-4.8) k/uL Monocytes # (0-1.0) k/uL Sodium (137-145) mmol/L Chloride (98-107) mmol/L Carbon Dioxide (22-30) mmol/L BUN (7-17) mg/dL Creatinine (0.52-1.04) mg/dL Glucose (74-99) mg/dL POC Glucose (mg/dL) 219 H 170 H (70-110) mg/dL Hemoglobin A1c 6.8 H (<=6.0) % Calcium (8.4-10.2) mg/dL 12/25/22 12/25/22 12/25/22 Range/Units 06:06 06:10 06:10 WBC 14.5 H (3.8-10.6) k/uL Plt Count 147 L (150-450) k/uL Neutrophils # 11.5 H (1.3-7.7) k/uL Lymphocytes # 0.9 L (1.0-4.8) k/uL Monocytes # 1.7 H (0-1.0) k/uL Sodium 136 L (137-145) mmol/L Chloride 111 H (98-107) mmol/L Carbon Dioxide 19 L (22-30) mmol/L BUN 20 H (7-17) mg/dL Creatinine 1.34 H (0.52-1.04) mg/dL Glucose 182 H (74-99) mg/dL POC Glucose (mg/dL) 193 H (70-110) mg/dL Hemoglobin A1c (<=6.0) % Calcium 7.6 L (8.4-10.2) mg/dL 12/25/22 Range/Units 11:02 WBC (3.8-10.6) k/uL Plt Count (150-450) k/uL Neutrophils # (1.3-7.7) k/uL Lymphocytes # (1.0-4.8) k/uL Monocytes # (0-1.0) k/uL Sodium (137-145) mmol/L Chloride (98-107) mmol/L Carbon Dioxide (22-30) mmol/L BUN (7-17) mg/dL Creatinine (0.52-1.04) mg/dL Glucose (74-99) mg/dL POC Glucose (mg/dL) 170 H (70-110) mg/dL Hemoglobin A1c (<=6.0) % Calcium (8.4-10.2) mg/dL Microbiology - Last 24 Hours (Table) 12/24/22 12:32 Blood Culture Gram Stain - Preliminary Blood Assessment and Plan Time with Patient: Less than 30
--- NOTE | 2022-12-25 14:36 | XR ---
EXAMINATION TYPE: XR abdomen 1V DATE OF EXAM: 12/25/2022 1:57 PM INDICATION: Patient age:Female; 77 years old; Reason for study: abdominal pain/nausea; COMPARISON: CT 12/24/2022. TECHNIQUE: One radiographic view of the abdomen was obtained. FINDINGS: The bowel gas pattern is nonspecific without dilated loops of small or large bowel. There i s no evidence for organomegaly or pneumoperitoneum. The osseous structures are intact. No abnormal calcifications are present. Fecal material and gas are demonstrated throughout the colon and rectum. IMPRESSION: Nonspecific bowel gas pattern without radiographic evidence for acute process.
[2022-12-25] MEDS ORDERED: bisacodyL 10 MG SUPP RECTAL STA (15:50)
[2022-12-25 16:01] VITALS: BMI 30.7
[2022-12-25 16:21] LABS: Glucose,Whole Blood 169 mg/dL (70-110)
[2022-12-25] MEDS ORDERED: BENZOCAINE/MENTHOL LOZENG 1 EACH LOZENGE MUCOUS MEM PRN (19:00)
[2022-12-25] MEDS: ATORVASTATIN 20 MG TAB PO SCH (21:06)
[2022-12-25 22:39] LABS: Glucose,Whole Blood 161 mg/dL (70-110)
[2022-12-26 05:48] LABS: Glucose,Whole Blood 151 mg/dL (70-110)
[2022-12-26] MEDS: PANTOPRAZOLE 40 MG TABLET PO SCH (06:41)
[2022-12-26] MEDS: INSULIN ASPART (NovoLOG) 100 UNIT/ML VIAL SQ SCH ×4 (06:41→21:30)
[2022-12-26] MEDS: LEVOTHYROXINE 88 MCG TAB PO SCH (06:41)
[2022-12-26] MEDS: SYMBICORT 80-4.5 MCG INHALER INHALATION SCH ×2 (08:09→21:42)
[2022-12-26] MEDS: IPRATROPIUM 0.5 MG/2.5 ML NEBU INHALATION SCH ×4 (08:10→21:42)
[2022-12-26] MEDS: SODIUM CHLORIDE 0.9% 1,000 ML IV SCH (08:12)
[2022-12-26] MEDS: METOPROLOL SUCCINATE (ER) 25 MG TAB.ER.24H PO SCH (08:17)
[2022-12-26] MEDS: LIOTHYRONINE SODIUM 5 MCG TAB PO SCH (08:17)
[2022-12-26] MEDS: FLUoxetine HCL 20 MG CAP PO SCH (08:17)
[2022-12-26] MEDS: LORATADINE 10 MG TAB PO SCH (08:17)
[2022-12-26] MEDS: HEPARIN SODIUM,PORCINE/PF 5,000 UNIT/0.5 ML SYRINGE SQ SCH ×2 (08:18→17:03)
[2022-12-26] MEDS: ACETAMINOPHEN TAB 325 MG TAB PO PRN ×2 (08:26→17:12)
[2022-12-26 10:38] LABS: Basophils % (A) 0 %; Eosinophils # (A) 0.2 k/uL (0-0.7); Eosinophils % (A) 1 %; HCT 37.2 % (34.0-46.0); HGB 12.2 gm/dL (11.4-16.0); Lymphocytes % (A) 8 %; MCH 30.8 pg (25.0-35.0); MCHC 32.7 g/dL (31.0-37.0); MCV 94.3 fL (80.0-100.0); Mean Platelet Volume 8.3; Monocytes # (A) 1.4 k/uL (0-1.0); Monocytes % (A) 11 %; Neutrophils # (A) 10.3 k/uL (1.3-7.7); Neutrophils % (A) 79 %; Platelet Count 189 k/uL (150-450); RBC 3.94 m/uL (3.80-5.40); RDW 13.5 % (11.5-15.5); WBC 13.1 k/uL (3.8-10.6)
[2022-12-26 10:45] LABS: African American GFR (CKD) 44 (>60 ml/min/1.73 sqM); Anion Gap 8 mmol/L; Blood Urea Nitrogen 16 mg/dL (7-17); Calcium 7.7 mg/dL (8.4-10.2); Carbon Dioxide 21 mmol/L (22-30); Chloride 108 mmol/L (98-107); Glucose 149 mg/dL (74-99); Non-African American GFR(CKD) 39 (>60 ml/min/1.73 sqM); Sodium 137 mmol/L (137-145)
[2022-12-26 11:05] LABS: Glucose,Whole Blood 148 mg/dL (70-110)
[2022-12-26] MEDS ORDERED: hydrALAZINE HCL 25 MG TAB PO STA (13:43)
--- NOTE | 2022-12-26 13:44 | P.PN ---
Subjective Progress Note Date: 12/26/22 -year-old pleasant female came in with complaints of abdominal pain in the epigastric area as well as suprapubic area significant severe. Patient denied any diarrhea patient has been nausea today and vomited few times yesterday. Patient denied any fever at home but had low-grade fever here and is comparing of body aches. Patient denied any recent exposure to people with sinus symptoms. Patient denied any dysuria or increased urinary frequency. Patient had a computed tomography scan of the abdomen which showed mild circumferential bladder wall thickening which can be chronic or can be acute cystitis and numerous fluid-filled small bowel loops consistent with gastroenteritis and there is also some perinephric fat stranding which can be secondary to chronic kidney disease rather than pyelonephritis. Urine is significantly abnormal with highly elevated white count in the urine. 12/25/2022 Patient is evaluated today resting in bed. Does complain of some continued mid abdomen pain worse with palpation, denies any epigastric pain, or burning like sensation. Is having bowel movements. Patient is currently on IV rocephin and urine culture is taken and pending. Blood culture reveals gram negative bacilli and has been repeated today infectious disease is consulted. Will order follow up abdominal xray to evaluation for conspitation patient doesn't have much distention there is dullness to percussion throughout. White count today is 14.5, sodium 136, BUN 20 creatinine 1.34. A1C found to be 6.8 discussed with patient and consistent with diagnosis of type 2 diabetes. 12/26/2022 Patient had multiple BMs after receiving suppository and symptoms have completely resolved at this time. Blood culture is showing gram negative bacilli continues on IV rocephin and repeat pending. ID has been consulted for further recommendations. Review of Systems Constitutional: Denied any fatigue denied any fever. Cardio vascular: denied any chest pain, palpitations Gastrointestinal: denied any nausea, vomiting, diarrhea. Pulmonary: Denied any shortness of breath cough Neurologic denied any new focal deficits All inpatient medications were reviewed and appropriate changes in these medications as dictated in the interval history and assessment and plan. PHYSICAL EXAMINATION: GENERAL: The patient is alert and oriented x3, not in any acute distress. Obese HEENT: Pupils are round and equally reacting to light. EOMI. No scleral icterus. No conjunctival pallor. Normocephalic, atraumatic. No pharyngeal erythema. No thyromegaly. CARDIOVASCULAR: S1 and S2 present. No murmurs, rubs, or gallops. PULMONARY: Chest is clear to auscultation, no wheezing or crackles. ABDOMEN: Soft, nontender, nondistended, No abdominal pain, No palpable organomegaly. MUSCULOSKELETAL: No joint swelling or deformity. EXTREMITIES: No cyanosis, clubbing, or pedal edema. NEUROLOGICAL: Gross neurological examination did not reveal any focal deficits. SKIN: No rashes. Assessment and plan 1 Urinary tract infection with sepsis present on admission -Gram negative bacilli bacteremia -Constipation resolved -Hyperlipidemia -Hypertension -Chronic kidney disease stage 2-3: Probably secondary to hypertension -New onset diabetes mellitus type 2 with A1C of 6.8, prior A1C in 2020 6.2, and 2021 was 6.4. -Hypothyroidism GI prophylaxis: DVT prophylaxis: Subcutaneous heparin Plan Patient is continued on IV antibiotics with IV ceftriaxone and repeat blood cultures have been taken. Infectious disease will be consulted for further recommendations. Patient continues on sliding scale insulin and accuchecks and transition to oral medications on discharge. Does have dexcom monitor for blood glucose monitoring at home and patient already follows with Dr. Ly in the office and will follow up on discharge. Repeat labs in the AM. The impression and plan of care has been dictated by Kandi Hagen, Nurse Practitioner as directed. Dr. Morelia MD I have performed a history and physical examination and medical decision making of this patient, discussed the same with the dictator, and agree with the dictators assessment and plan as written, documented as a scribe. Based on total visit time, I have performed more than 50% of this visit. Objective - Vital Signs Vital signs: Vital Signs Temp 99.9 F H 12/26/22 07:15 Pulse 80 12/26/22 11:51 Resp 18 12/26/22 07:15 BP 191/77 12/26/22 07:15 Pulse Ox 97 12/26/22 07:15 FiO2 Intake & Output 12/25/22 12/26/22 12/26/22 18:59 06:59 18:59 Weight 86.183 kg Other: Voiding Method Toilet # Voids 2 2 # Bowel Movements 0 - Labs CBC & Chem 7: 12/26/22 10:06 12/26/22 10:06 Labs: Abnormal Lab Results - Last 24 Hours (Table) 12/25/22 12/25/22 12/26/22 Range/Units 16:19 22:35 05:45 WBC (3.8-10.6) k/uL Neutrophils # (1.3-7.7) k/uL Monocytes # (0-1.0) k/uL Chloride (98-107) mmol/L Carbon Dioxide (22-30) mmol/L Creatinine (0.52-1.04) mg/dL Glucose (74-99) mg/dL POC Glucose (mg/dL) 169 H 161 H 151 H (70-110) mg/dL Calcium (8.4-10.2) mg/dL 12/26/22 12/26/22 12/26/22 Range/Units 10:06 10:06 11:04 WBC 13.1 H (3.8-10.6) k/uL Neutrophils # 10.3 H (1.3-7.7) k/uL Monocytes # 1.4 H (0-1.0) k/uL Chloride 108 H (98-107) mmol/L Carbon Dioxide 21 L (22-30) mmol/L Creatinine 1.33 H (0.52-1.04) mg/dL Glucose 149 H (74-99) mg/dL POC Glucose (mg/dL) 148 H (70-110) mg/dL Calcium 7.7 L (8.4-10.2) mg/dL Microbiology - Last 24 Hours (Table) 12/24/22 12:15 Blood Culture Gram Stain - Preliminary Blood Blood Culture - Preliminary Gram Neg Bacilli 12/24/22 12:32 Blood Culture Gram Stain - Preliminary Blood Blood Culture - Preliminary Gram Neg Bacilli Assessment and Plan Time with Patient: Less than 30
[2022-12-26 16:08] LABS: Glucose,Whole Blood 129 mg/dL (70-110)
--- NOTE | 2022-12-26 20:15 | P.CONS ---
History of Present Illness - Reason for Consult Consult date: 12/26/22 Bacteremia Requesting physician: Kandi Hagen - Chief Complaint Abdominal pain x few days - History of Present Illness Patient is a 77-year-old female with a past medical history of liver hypertension hyperlipidemia pneumonia thyroid disorder and asthma presented to the hospital with abdominal pain symptom has been going on for about a day before presentation to the hospital and did work-up the patient patient apparently has vomited x1 and remains to be felt nauseated denies having any diarrhea no chest pain no shortness of breath or cough no headache or URI symptoms patient on presentation to the hospital did have a low-grade fever of 99.7 F patient was not hypoxic or need for supplemental oxygen hemodynamically stable did have a white count 17.4 with a left shift did have mild elevated BUN and creatinine that was observed normal amylase lipase was normal she did have a positive UA with large leukocyte Estrace more than 182 WBC patient did have a CT abdominal pelvis mild circumferential bladder wall thickening possible cystitis numerous fluid-filled small bowel loops regional ileus or enteritis some perinephric fat stranding along the right kidney concerning for pyelonephritis patient did have a blood and urine culture now growing gram-negative bacilli with ID sensitivities pending patient is on her Rocephin infectious disease was consulted for further management of antibiotic therapy Review of Systems Positive point and negatives has been mentioned in the HPI, complete review of systems was performed and all other systems are negative Past Medical History Past Medical History: Asthma, Hyperlipidemia, Pneumonia, Skin Disorder, Thyroid Disorder Additional Past Medical History / Comment(s): Tachycardia (takes metoprolol for this), 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 Seasonal ALLERGIES. History of Any Multi-Drug Resistant Organisms: None Reported Past Surgical History: Heart Catheterization, Orthopedic Surgery Additional Past Surgical History / Comment(s): rt shoulder rotator cuff. Colonoscopy 2020 Past Anesthesia/Blood Transfusion Reactions: Motion Sickness Additional Past Anesthesia/Blood Transfusion Reaction / Comm: "hard time waking me up" Past Psychological History: Anxiety Additional Psychological History / Comment(s): OCD Smoking Status: Never smoker Past Alcohol Use History: Rare Past Drug Use History: None Reported - Past Family History Mother Family Medical History: Cancer Additional Family Medical History / Comment(s): Pancreatic cancer. Father Family Medical History: Myocardial Infarction ([place]) Brother(s) Family Medical History: Cancer Additional Family Medical History / Comment(s): Lung cancer. Medications and Allergies Home Medications Medication Instructions Recorded Confirmed Type Levothyroxine Sodium [Synthroid] 88 mcg PO DAILY 04/14/14 12/24/22 History Liothyronine Sodium [Cytomel] 5 mcg PO DAILY 04/14/14 12/24/22 History Cetirizine HCl [Zyrtec] 10 mg PO DAILY 01/05/15 12/24/22 History ALPRAZolam [Xanax] 0.5 mg PO HS 08/07/20 12/24/22 History Atorvastatin [Lipitor] 20 mg PO HS 08/07/20 12/24/22 History Naltrexone HCl [Revia] 50 mg PO HS 08/07/20 12/24/22 History hydrOXYzine HCL [Atarax] 25 mg PO HS 08/07/20 12/24/22 History Albuterol Sulfate [Albuterol 2 puff PO RT-Q6H PRN 12/24/22 12/24/22 History Sulfate Hfa] Clobetasol 0.05% Solution 1 applic TOPICAL HS PRN 12/24/22 12/24/22 History Dupilumab [Dupixent Pen] 300 mg SQ Q28D 12/24/22 12/24/22 History FLUoxetine HCL [PROzac] 60 mg PO DAILY 12/24/22 12/24/22 History Fluticasone/Umeclidin/Vilanter 1 puff INHALATION RT-DAILY 12/24/22 12/24/22 History [Trelegy Ellipta 100-62.5-25] Acetaminophen Tab [Tylenol] 650 mg PO Q6HR PRN tab 12/28/22 Rx Metoprolol Tartrate [Lopressor] 50 mg PO BID 30 Days #60 tab 12/28/22 Rx Pantoprazole [Protonix] 40 mg PO AC-BRKFST #30 tab 12/28/22 Rx Simethicone 40 mg/0.6 ml Drops 40 mg PO QID PRN ml 12/28/22 Rx [Mylicon Drops] cefUROXime axetiL [Ceftin] 500 mg PO BID 7 Days #14 tab 12/28/22 Rx Allergies Allergy/AdvReac Type Severity Reaction Status Date / Time diphenhydramine HCl Allergy Rapid Verified 12/24/22 11:37 [From Benadryl] Heart Rate pollen,dust,grass,mold Allergy Unknown Uncoded 12/24/22 09:33 Physical Exam Vitals: Vital Signs Temp Pulse Pulse Resp BP Pulse Ox 12/26/22 11:51 80 12/26/22 11:41 76 12/26/22 08:22 76 12/26/22 08:12 74 12/26/22 07:15 99.9 F H 87 18 191/77 97 12/26/22 00:20 98.1 F 94 18 175/70 96 12/25/22 20:20 18 12/25/22 19:15 98.2 F 82 18 186/83 96 12/25/22 17:14 76 12/25/22 17:05 74 Intake and Output 12/25/22 12/26/22 12/26/22 22:59 06:59 14:59 Other: Voiding Method Toilet # Voids 2 2 # Bowel Movements 0 Weight 86.183 kg GENERAL DESCRIPTION: Elderly female lying in bed, no distress. No tachypnea or accessory muscle of respiration use. HEENT: Shows Pallor , no scleral icterus. Oral mucous membrane is dry. No pharyngeal erythema or thrush NECK: Trachea central, no thyromegaly. LUNGS: Unlabored breathing. Clear to auscultation anteriorly. . HEART: S1, S2, regular rate and rhythm. No loud murmur ABDOMEN: Soft, no tenderness EXTREMITIES: No edema of feet. SKIN: No rash, no masses palpable. NEUROLOGICAL: The patient is awake, alert, oriented x3, mood and affect normal. Results CBC & Chem 7: 12/28/22 07:26 12/28/22 07:26 Labs: Abnormal Lab Results - Last 24 Hours (Table) 12/25/22 12/25/22 12/26/22 Range/Units 16:19 22:35 05:45 WBC (3.8-10.6) k/uL Neutrophils # (1.3-7.7) k/uL Monocytes # (0-1.0) k/uL Chloride (98-107) mmol/L Carbon Dioxide (22-30) mmol/L Creatinine (0.52-1.04) mg/dL Glucose (74-99) mg/dL POC Glucose (mg/dL) 169 H 161 H 151 H (70-110) mg/dL Calcium (8.4-10.2) mg/dL 12/26/22 12/26/22 12/26/22 Range/Units 10:06 10:06 11:04 WBC 13.1 H (3.8-10.6) k/uL Neutrophils # 10.3 H (1.3-7.7) k/uL Monocytes # 1.4 H (0-1.0) k/uL Chloride 108 H (98-107) mmol/L Carbon Dioxide 21 L (22-30) mmol/L Creatinine 1.33 H (0.52-1.04) mg/dL Glucose 149 H (74-99) mg/dL POC Glucose (mg/dL) 148 H (70-110) mg/dL Calcium 7.7 L (8.4-10.2) mg/dL Microbiology - Last 24 Hours (Table) 12/24/22 12:15 Blood Culture Gram Stain - Preliminary Blood Blood Culture - Preliminary Gram Neg Bacilli 12/24/22 12:32 Blood Culture Gram Stain - Preliminary Blood Blood Culture - Preliminary Gram Neg Bacilli Assessment and Plan (1) Bacteremia Status: Acute Code(s): R78.81 - BACTEREMIA SNOMED Code(s): 4785540 (2) Pyelonephritis Status: Acute Code(s): N12 - TUBULO-INTERSTITIAL NEPHRITIS, NOT SPCF ACUTE OR CHRONIC SNOMED Code(s): 68572371 Plan: 1patient with the gram-negative bacteremia source likely urinary in this patient with significantly positive UA and some perinephric fat stranding on the CT on the right side likely right-sided pyelonephritis patient did have abdominal symptoms and there was a question of possible enteritis or ileus however he did have overall improvement in her abdominal pain as of today's evaluation 2-patient to continue with Rocephin 2 g daily while waiting for sensitivity finalize 3-discharge antibiotics likely oral on the basis of culture Family the bedside multiple questions concerns answered We will follow on clinical condition and cultures to further adjust medication if needed Thank you for this consultation we will follow the patient along with you Time with Patient: Greater than 30
[2022-12-26 20:27] LABS: Glucose,Whole Blood 226 mg/dL (70-110)
[2022-12-26] MEDS: ATORVASTATIN 20 MG TAB PO SCH (20:35)
[2022-12-26] MEDS: METOPROLOL TARTRATE 50 MG TAB PO SCH (20:35)
[2022-12-26] MEDS: ALPRAZolam 0.5 MG TAB PO PRN (20:35)
[2022-12-26 21:25] LABS: Glucose,Whole Blood 217 mg/dL (70-110)
[2022-12-27] MEDS: HEPARIN SODIUM,PORCINE/PF 5,000 UNIT/0.5 ML SYRINGE SQ SCH ×4 (01:15→23:53)
[2022-12-27 05:55] LABS: Glucose,Whole Blood 120 mg/dL (70-110)
[2022-12-27] MEDS: INSULIN ASPART (NovoLOG) 100 UNIT/ML VIAL SQ SCH ×4 (06:00→21:13)
[2022-12-27] MEDS: PANTOPRAZOLE 40 MG TABLET PO SCH (06:02)
[2022-12-27] MEDS: LEVOTHYROXINE 88 MCG TAB PO SCH (06:02)
[2022-12-27] MEDS: METOPROLOL TARTRATE 50 MG TAB PO SCH ×2 (07:36→21:13)
[2022-12-27] MEDS: LORATADINE 10 MG TAB PO SCH (07:36)
[2022-12-27] MEDS: FLUoxetine HCL 20 MG CAP PO SCH (07:36)
[2022-12-27] MEDS: LIOTHYRONINE SODIUM 5 MCG TAB PO SCH (07:36)
[2022-12-27] MEDS: SYMBICORT 80-4.5 MCG INHALER INHALATION SCH ×2 (09:06→20:52)
[2022-12-27] MEDS: IPRATROPIUM 0.5 MG/2.5 ML NEBU INHALATION SCH ×4 (09:06→20:52)
[2022-12-27 11:34] LABS: Glucose,Whole Blood 119 mg/dL (70-110)
[2022-12-27 16:38] LABS: Glucose,Whole Blood 177 mg/dL (70-110)
[2022-12-27] MEDS ORDERED: SIMETHICONE 40 MG/0.6 ML DROPS 2,000 MG/30 ML BOTTLE PO PRN (20:07)
[2022-12-27 20:48] LABS: Glucose,Whole Blood 222 mg/dL (70-110)
[2022-12-27] MEDS: ATORVASTATIN 20 MG TAB PO SCH (21:13)
[2022-12-27] MEDS: ALPRAZolam 0.5 MG TAB PO PRN (21:13)
--- NOTE | 2022-12-27 22:37 | P.PN ---
Subjective Progress Note Date: 12/27/22 Principal diagnosis: UTI and Bacteremia patient is a 77-year-old female presenting to the hospital with abdominal pain nausea low-grade fever CT did shows evidence of ileus and possible right-sided pyonephritis and the patient did have a gram-negative bacteremia. On today's evaluation that is 12/27/2022, the patient is afebrile patient is feeling slightly better she is breathing comfortably on room air no chest pain no shortness of breath or cough abdominal pain has improved no nausea vomiting or diarrhea Objective - Vital Signs Vital signs: Vital Signs Temp 98.7 F 12/27/22 07:48 Pulse 75 12/27/22 09:19 Resp 17 12/27/22 07:48 BP 185/82 12/27/22 07:48 Pulse Ox 95 12/27/22 07:48 FiO2 Intake & Output 12/26/22 12/27/22 12/27/22 18:59 06:59 18:59 Intake Total 300 Balance 300 Intake: Oral 300 Other: # Voids 1 2 # Bowel Movements 1 - Exam GENERAL DESCRIPTION: Elderly female up in the chair in no distress RESPIRATORY SYSTEM: Unlabored breathing , decreased breath sounds at bases HEART: S1 S2 regular rate and rhythm ,no loud murmurs ABDOMEN: Soft , no tenderness EXTREMITIES: No edema feet - Labs CBC & Chem 7: 12/26/22 10:06 12/26/22 10:06 Labs: Abnormal Lab Results - Last 24 Hours (Table) 12/26/22 12/26/22 12/26/22 Range/Units 11:04 16:06 20:26 POC Glucose (mg/dL) 148 H 129 H 226 H (70-110) mg/dL 12/26/22 12/27/22 Range/Units 21:24 05:53 POC Glucose (mg/dL) 217 H 120 H (70-110) mg/dL Microbiology - Last 24 Hours (Table) 12/25/22 13:10 Blood Culture - Preliminary Blood 12/24/22 12:15 Blood Culture Gram Stain - Preliminary Blood Blood Culture - Preliminary Gram Neg Bacilli 12/24/22 12:32 Blood Culture Gram Stain - Preliminary Blood Blood Culture - Preliminary Gram Neg Bacilli Assessment and Plan (1) Bacteremia Current Visit: Yes Status: Acute Code(s): R78.81 - BACTEREMIA SNOMED Code(s): 4901381 (2) Pyelonephritis Current Visit: Yes Status: Acute Code(s): N12 - TUBULO-INTERSTITIAL NEPHRITIS, NOT SPCF ACUTE OR CHRONIC SNOMED Code(s): 29782744 Plan: 1patient with the gram-negative bacteremia source likely urinary in this patient with significantly positive UA and some perinephric fat stranding on the CT on the right side likely right-sided pyelonephritis patient did have abdominal symptoms and there was a question of possible enteritis or ileus however he did have overall improvement in her abdominal pain 2-patient to continue with Rocephin 2 g daily while waiting for sensitivity finalize and monitor clinical course closely Time with Patient: Less than 30
--- NOTE | 2022-12-28 03:52 | PN ---
PROGRESS NOTE DATE OF SERVICE: 12/27/2022 SUBJECTIVE: This is a 77-year-old woman, who was admitted with UTI with sepsis as E coli grown from the culture, which is resistant to some of the antibiotics. No chest pain. No palpitation. OBJECTIVE: VITAL SIGNS: Pulse is 79, blood pressure 137/80, respirations 18. CHEST: Clear to auscultation. CARDIOVASCULAR: S1, S2. ABDOMEN: Soft, nontender. LABORATORY DATA: Reviewed. ASSESSMENT: 1. Urinary tract infection with sepsis with Eschericia coli. 2. Hypertension. 3. Hyperlipidemia. 4. Multiple medical issues. RECOMMENDATIONS: Recommend to continue current management. Continue symptomatic treatment. Continue with antibiotics. Closely follow with Infectious Disease. Repeat labs in the morning. Possibly home in the next 24 to 48 hours. MMODL / IJN: [id number] /
[2022-12-28 06:10] LABS: Glucose,Whole Blood 132 mg/dL (70-110)
[2022-12-28] MEDS: INSULIN ASPART (NovoLOG) 100 UNIT/ML VIAL SQ SCH ×2 (06:20→11:50)
[2022-12-28] MEDS: LEVOTHYROXINE 88 MCG TAB PO SCH (06:23)
[2022-12-28] MEDS: HEPARIN SODIUM,PORCINE/PF 5,000 UNIT/0.5 ML SYRINGE SQ SCH ×2 (07:24→15:24)
[2022-12-28] MEDS: METOPROLOL TARTRATE 50 MG TAB PO SCH (07:24)
[2022-12-28] MEDS: LIOTHYRONINE SODIUM 5 MCG TAB PO SCH (07:24)
[2022-12-28] MEDS: LORATADINE 10 MG TAB PO SCH (07:24)
[2022-12-28] MEDS: PANTOPRAZOLE 40 MG TABLET PO SCH (07:24)
[2022-12-28] MEDS: FLUoxetine HCL 20 MG CAP PO SCH (07:24)
[2022-12-28 08:01] VITALS: BP 189/85; RESP 19; TEMP 98
[2022-12-28] MEDS: SYMBICORT 80-4.5 MCG INHALER INHALATION SCH (08:02)
[2022-12-28] MEDS: IPRATROPIUM 0.5 MG/2.5 ML NEBU INHALATION SCH ×3 (11:04→15:24)
[2022-12-28 11:17] VITALS: PULSE 80
[2022-12-28 11:37] LABS: Glucose,Whole Blood 131 mg/dL (70-110)
[2022-12-28 14:38] LABS: Basophils # (A) 0.04 X 10*3/uL (0.00-0.10); Basophils % (A) 0.4 %; Eosinophils # (A) 0.22 X 10*3/uL (0.04-0.35); Eosinophils % (A) 2.3 %; HCT 38.6 % (37.2-46.3); HGB 13.1 d/dL (12.0-15.0); Lymphocytes # (A) 1.79 X 10*3/uL (0.90-5.00); MCHC 33.9 d/dL (32.0-37.0); MCV 91.3 FL (80.0-97.0); Monocytes # (A) 1.37 X 10*3/uL (0.20-1.00); Monocytes % (A) 14.5 %; NRBC Per 100 WBC 0 X 10*3/uL (0.00-0.01); Neutrophils # (A) 5.96 X 10*3/uL (1.80-7.70); Neutrophils % (A) 63.2 %; Platelet Count 276 X 10*3/uL (140-440); RBC 4.23 X 10*6/uL (4.10-5.20); RDW 14.4 % (11.5-14.5); WBC 9.44 X 10*3/uL (4.50-10.00)
--- NOTE | 2022-12-28 16:47 | CDI ---
Documentation Clarification Form Date: 12/28/2022 04:28:03 PM From: Karin Patel RN, CCDS Admit Date: 12/24/2022 12:20:00 PM Patient Name: Geetha Blackwood Visit Number: [id number] Discharge Date: ATTENTION: The Clinical Documentation Specialists (CDI) and [facility] Coding Staff appreciate your assistance in clarifying documentation. Please respond to the clarification below the line at the bottom and electronically sign. The CDI & [facility] Coding staff will review the response and follow-up if needed. Please note: Queries are made part of the Legal Health Record. If you have any questions, please contact the author of this message via ITS. Dr. Harjinder Juares Unspecified CKD stage 2-3 is documented in the H/P and subsequent progress notes. We are not able to make the diagnosis when a range is provided. Additional clarification regarding the stage of CKD is requested. History/Risk Factors: Asthma, Hyperlipidemia, Hypertension, Thyroid Disorder Clinical Indicators: 77-year-old female present with complaints of abdominal pain with nausea and vomiting. 12/24 CT of abdomen: Mild circumferential bladder wall thickening with can be chronic or can be ac cystitis and numerous fluid-filled small bowel loops consistent with gastroenteritis and there is also some perinephric fat stranding which can be secondary to chronic kidney disease rather than pyelonephritis. 12/24 BUN 28 CR 1.30 GFR 40 12/25 BUN 20 CR 1.34 GFR 38 12/26 BUN 16 CR 1.33 GFR 39 Treatment: .9NS 1,000 ML IV Bolus 12/24 then 100 ml 12/24-12/26 Monitor Labs, per orders BUN CR, daily x3 Please clarify the stage of the CKD, if known: [ ] CKD Stage 2 (GFR 60-89) [ ] CKD Stage 3 (GFR 30-59) [ ] Other, please specify [ ] Unable to determine (Template Last revised: August 2020) CKD Stage 3 (GFR 30-59) [facility]
[2022-12-29 05:21] LABS: BUN/Creat Ratio 15.64 Ratio (12.00-20.00); Blood Urea Nitrogen 21.9 mg/dL (9.0-27.0); Calcium 8.9 mg/dL (8.7-10.3); Carbon Dioxide 20.2 mmol/L (21.6-31.8); Chloride 106 mmol/L (96-109); Glucose 131 mg/dL (70-110); Potassium 4.4 mmol/L (3.5-5.5); Sodium 142 mmol/L (135-145)
--- NOTE | 2022-12-29 14:19 | P.DS ---
Providers Date of admission: 12/24/22 12:20 Expected date of discharge: 12/28/22 Attending physician: Jason Thibodeaux Consults: 12/25/22 13:40 Consult Physician Routine Consulting Provider: Charisse Conklin Consult Reason/Comments: bacteremia Do you want consulting provider notified?: Yes Primary care physician: Jere Nelson [facility] Course: Final diagnosis -Acute Urinary tract infection with sepsis present on admission -Gram negative bacilli bacteremia with cultures finalizing E. coli and most repeat cultures are negative -Constipation resolved -Hyperlipidemia -Hypertension -Chronic kidney disease stage 3: Probably secondary to hypertension -New onset diabetes mellitus type 2 with A1C of 6.8, prior A1C in 2020 6.2, and 2021 was 6.4. -Hypothyroidism -GI prophylaxis -DVT prophylaxis Discharge disposition Patient is being discharged in a stable condition with guarded prognosis to home. Patient will follow-up with Dr. Nelson in the outpatient setting upon dis charge. Patient is to continue with oral Ceftin 500 mg twice daily for the next 1 week. Total time taken is greater than 35 minutes. Hospital course This is a 77-year-old female who was recently admitted with abdominal pain and acute urinary tract infection, present on admission with features of sepsis and found to have gram-negative bacilli bacteremia and cultures finalized showing E. coli with sensitivities. Infectious disease following closely and maintained on IV antibiotics will continue oral Ceftin 500 mg twice daily for the next 1 week to complete the course. Patient's most recent blood cultures are negative at this time. and was being closely monitored. Encourage the patient follow-up with primary care provider this week to discuss new onset diabetes and medication adjustments and diet control. Patient verbalized understanding and received a prescription for a glucometer and instructed to continue checking blood sugars daily and keep a diary of readings and bring with her to primary care follow-up. Recommend repeat labs in the next few days to monitor kidney functions as well. Patient has been cleared by consultations for discharge today. Please refer to consulta tion notes for further HPI. Currently no reports of chest pain, shortness of breath, or palpitations. Patient is afebrile. No reports of nausea or vomiting and patient is tolerating diet. Patient will be discharged home today. Guarded prognosis. Physical exam: Gen: This is a 77-year-old female who is awake, alert and oriented 3, well- developed, well-nourished, obese HEENT: Head is atraumatic, normocephalic. Pupils equal, round. Sclerae is anicteric. NECK: Supple. No JVD. No lymphadenopathy. No thyromegaly. LUNGS: Clear to auscultation. No wheezes or rhonchi. No intercostal retracti ons. HEART: Regular rate and rhythm. No murmur. ABDOMEN: Soft. Obese. Bowel sounds are present. No masses. No tenderness. EXTREMITIES: No pedal edema. No calf tenderness. NEUROLOGICAL: Patient is awake, alert and oriented x3. Cranial nerves 2 through 12 are grossly intact. Please refer to medication reconciliation sheet for a list of medications. The impression and plan of care has been dictated by Nadja Stewart, Nurse Practitioner as directed. Dr. Mor MD I have performed a history and examination and MDM of this patient, discussed the same with the dictator, and agree with the dictator's assessment and plan as written ,documented as a scribe. Based on total visit time, I have performed more than 50% of the visit. Patient Condition at Discharge: Stable Plan - Discharge Summary Discharge Rx Participant: No New Discharge Prescriptions: New cefUROXime axetiL [Ceftin] 500 mg PO BID 7 Days #14 tab Metoprolol Tartrate [Lopressor] 50 mg PO BID 30 Days #60 tab Pantoprazole [Protonix] 40 mg PO AC-BRKFST #30 tab Simethicone 40 mg/0.6 ml Drops [Mylicon Drops] 40 mg PO QID PRN ml PRN Reason: Bloating Acetaminophen Tab [Tylenol] 650 mg PO Q6HR PRN tab PRN Reason: Fever Continue Levothyroxine Sodium [Synthroid] 88 mcg PO DAILY Liothyronine Sodium [Cytomel] 5 mcg PO DAILY Cetirizine HCl [Zyrtec] 10 mg PO DAILY Naltrexone HCl [Revia] 50 mg PO HS ALPRAZolam [Xanax] 0.5 mg PO HS hydrOXYzine HCL [Atarax] 25 mg PO HS Atorvastatin [Lipitor] 20 mg PO HS Dupilumab [Dupixent Pen] 300 mg SQ Q28D Albuterol Sulfate [Albuterol Sulfate Hfa] 2 puff PO RT-Q6H PRN PRN Reason: Shortness Of Breath Fluticasone/Umeclidin/Vilanter [Trelegy Ellipta 100-62.5-25] 1 puff INHALATION RT-DAILY FLUoxetine HCL [PROzac] 60 mg PO DAILY Clobetasol 0.05% Solution 1 applic TOPICAL HS PRN PRN Reason: SCALP FLARE UP Discontinued Metoprolol Succinate (ER) [Toprol Xl] 25 mg PO DAILY Discharge Medication List Levothyroxine Sodium [Synthroid] 88 mcg PO DAILY 04/14/14 [History] Liothyronine Sodium [Cytomel] 5 mcg PO DAILY 04/14/14 [History] Cetirizine HCl [Zyrtec] 10 mg PO DAILY 01/05/15 [History] ALPRAZolam [Xanax] 0.5 mg PO HS 08/07/20 [History] Atorvastatin [Lipitor] 20 mg PO HS 08/07/20 [History] Naltrexone HCl [Revia] 50 mg PO HS 08/07/20 [History] hydrOXYzine HCL [Atarax] 25 mg PO HS 08/07/20 [History] Albuterol Sulfate [Albuterol Sulfate Hfa] 2 puff PO RT-Q6H PRN 12/24/22 [History] Clobetasol 0.05% Solution 1 applic TOPICAL HS PRN 12/24/22 [History] Dupilumab [Dupixent Pen] 300 mg SQ Q28D 12/24/22 [History] FLUoxetine HCL [PROzac] 60 mg PO DAILY 12/24/22 [History] Fluticasone/Umeclidin/Vilanter [Trelegy Ellipta 100-62.5-25] 1 puff INHALATION RT-DAILY 12/24/22 [History] Acetaminophen Tab [Tylenol] 650 mg PO Q6HR PRN tab 12/28/22 [Rx] Metoprolol Tartrate [Lopressor] 50 mg PO BID 30 Days #60 tab 12/28/22 [Rx] Pantoprazole [Protonix] 40 mg PO AC-BRKFST #30 tab 12/28/22 [Rx] Simethicone 40 mg/0.6 ml Drops [Mylicon Drops] 40 mg PO QID PRN ml 12/28/22 [Rx] cefUROXime axetiL [Ceftin] 500 mg PO BID 7 Days #14 tab 12/28/22 [Rx] Follow up Appointment(s)/Referral(s): Jere Nelson MD [Primary Care Provider] - 01/03/23 11:30 am (with bimal) Ambulatory/Diagnostic Orders: Complete Blood Count w/diff [LAB.AMB] Time Frame: 3 Days, Location: None Selected Patient Instructions/Handouts: Urinary Tract Infection in Women (DC), Ileus (DC) Activity/Diet/Wound Care/Special Instructions: Glucometer is at [facility] - please have it delivered prior to discharge. (Patient recieved glucometer) Hemoglobin A1c is 6.9 and recommended discuss with primary care provider about the need for oral diabetic agents versus insulins Recommend continue monitoring Accu-Cheks at least daily and keep a diary of all readings for primary care follow-up Continue taking antibiotics until finished Follow-up with primary care provider on discharge Recommend follow-up labs of CBC, BMP in 2-3 days Discharge Disposition: HOME SELF-CARE
--- NOTE | 2023-01-05 13:53 | P.PN ---
Subjective Progress Note Date: 12/28/22 Principal diagnosis: UTI and Bacteremia patient is a 77-year-old female presenting to the hospital with abdominal pain nausea low-grade fever CT did shows evidence of ileus and possible right-sided pyonephritis and the patient did have a gram-negative bacteremia. On today's evaluation that is 12/28/2022, the patient remains to be afebrile, patient is feeling better she is breathing comfortably on room air , the patient denies chest pain no shortness of breath or cough abdominal pain has improved no nausea vomiting or diarrhea Objective - Vital Signs Vital signs: Vital Signs Temp 98.0 F 12/28/22 07:09 Pulse 80 12/28/22 11:16 Resp 19 12/28/22 07:09 BP 189/85 12/28/22 07:09 Pulse Ox 99 12/28/22 07:09 FiO2 Intake & Output 12/27/22 12/28/22 12/28/22 18:59 06:59 18:59 Intake Total 800 Balance 800 Intake: Oral 800 Other: Voiding Method Toilet # Voids 3 2 # Bowel Movements 1 - Exam GENERAL DESCRIPTION: Elderly female up in the chair in no distress RESPIRATORY SYSTEM: Unlabored breathing , decreased breath sounds at bases HEART: S1 S2 regular rate and rhythm ,no loud murmurs ABDOMEN: Soft , no tenderness EXTREMITIES: No edema feet - Labs CBC & Chem 7: 12/28/22 07:26 12/28/22 07:26 Labs: Abnormal Lab Results - Last 24 Hours (Table) 12/27/22 12/27/22 12/27/22 Range/Units 11:32 16:37 20:46 POC Glucose (mg/dL) 119 H 177 H 222 H (70-110) mg/dL 12/28/22 Range/Units 06:09 POC Glucose (mg/dL) 132 H (70-110) mg/dL Microbiology - Last 24 Hours (Table) 12/25/22 13:10 Blood Culture - Preliminary Blood 12/24/22 12:32 Blood Culture Gram Stain - Final Blood Blood Culture - Final Escherichia coli 12/24/22 12:15 Blood Culture Gram Stain - Final Blood Blood Culture - Final Escherichia coli Assessment and Plan (1) Bacteremia Status: Acute Code(s): R78.81 - BACTEREMIA SNOMED Code(s): 6210785 (2) Pyelonephritis Status: Acute Code(s): N12 - TUBULO-INTERSTITIAL NEPHRITIS, NOT SPCF ACUTE OR CHRONIC SNOMED Code(s): 92486122 Plan: 1patient with the gram-negative bacteremia source likely urinary in this patient with significantly positive UA and some perinephric fat stranding on the CT on the right side likely right-sided pyelonephritis patient did have abdominal symptoms and there was a question of possible enteritis or ileus however he did have overall improvement in her abdominal pain 2-patient has shown clinical improvement with Rocephin 2 g daily and wants to go home antibiotics will be scheduled to oral Ceftin and closer outpatient follow- up Time with Patient: Less than 30
== END 2022-12-28 16:35 | disposition home or self-care (01) | DRG 872 ==
LOC: EC 09:28 → 4SSUR 12:20
PROVIDERS: ADMIT Internal Medicine; ATTEND Internal Medicine
DX: A41.51 Sepsis due to Escherichia coli [E. coli] (principal); N12 Tubulo-interstitial nephritis, not specified as acute or chronic; E03.9 Hypothyroidism, unspecified; E78.5 Hyperlipidemia, unspecified; I12.9 Hypertensive chronic kidney disease with stage 1 through stage 4 chronic kidney disease, or unspecified chronic kidney disease; Z79.890 Hormone replacement therapy; E11.22 Type 2 diabetes mellitus with diabetic chronic kidney disease; A08.4 Viral intestinal infection, unspecified; F42.9 Obsessive-compulsive disorder, unspecified; J30.2 Other seasonal allergic rhinitis; K59.00 Constipation, unspecified; F41.9 Anxiety disorder, unspecified; L82.1 Other seborrheic keratosis; J45.909 Unspecified asthma, uncomplicated; Z87.01 Personal history of pneumonia (recurrent); Z79.899 Other long term (current) drug therapy
CPT/HCPCS: 36415; 74018; 74176; 80048; 80053; 81001; 82150; 83036; 83605; 83690; 83735; 85025; 87040; 87077; 87086; 87186; 94640; 96361; 96372; 96374; 96375; 99285

== ENCOUNTER 2023-10-23 18:04 | Emergency (ER) | payer MEDICARE ==
[2023-10-23 18:40] VITALS: TEMP 97.8
--- NOTE | 2023-10-23 19:12 | XR ---
EXAMINATION TYPE: XR ribs LT w pa chest xray DATE OF EXAM: 10/23/2023 6:43 PM CLINICAL INDICATION:Female, 78 years old with history of fall pain. c/o left rib pain right shoulder pain; H COMPARISON: 01/05/2015 TECHNIQUE: XR ribs LT w pa chest xray; Frontal and oblique views of the ribs with frontal chest radio graph. FINDINGS: The ribs have a normal appearance. No evidence of fracture. Overall, the lungs are clear. The cardiac silhouette is normal in size. The remaining osseous structures are intact. IMPRESSION: No acute osseous pathology.
--- NOTE | 2023-10-23 19:13 | XR ---
EXAMINATION TYPE: XR shoulder complete RT DATE OF EXAM: 10/23/2023 6:43 PM CLINICAL INDICATION:Female, 78 years old with history of fall pain. c/o left rib pain right shoulder pain; PH[facility] COMPARISON: None TECHNIQUE: XR shoulder complete RT; examined in AP, internally rotated and scapular Y projections. FINDINGS: No evidence of acute osseous pathology, joint dislocation, or soft tissue swelling. The remaining po rtions of the visualized chest are unremarkable. Mild degeneration changes of the acromion, distal c lavicle with osteophyte formation. There is osteophyte formation of the glenoid and humeral head. The re is joint space narrowing of glenohumeral joint. Surgical anchor in place. IMPRESSION: No acute osseous pathology. 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
--- NOTE | 2023-10-23 19:27 | ED ---
Fall HPI - General Chief Complaint: Fall Stated Complaint: pain on left side/ rib pain Time Seen by Provider: 10/23/23 18:30 Source: patient, family, RN notes reviewed Mode of arrival: ambulatory - History of Present Illness Initial Comments: This is a 78-year-old female since emergency department chief complaint of left- sided rib pain and right-sided shoulder pain. Patient states she was at the gym on Tuesday when she got up from the leg press machine and tripped and fell hitting her left side of her chest and hurting her right shoulder. Patient denies shortness of breath. She denies syncopal symptoms at time of fall on Tuesday, states that she tripped. - Related Data Home Medications Medication Instructions Recorded Confirmed Levothyroxine Sodium [Synthroid] 88 mcg PO DAILY 04/14/14 12/24/22 Liothyronine Sodium [Cytomel] 5 mcg PO DAILY 04/14/14 12/24/22 Cetirizine HCl [Zyrtec] 10 mg PO DAILY 01/05/15 12/24/22 ALPRAZolam [Xanax] 0.5 mg PO HS 08/07/20 12/24/22 Atorvastatin [Lipitor] 20 mg PO HS 08/07/20 12/24/22 Naltrexone HCl [Revia] 50 mg PO HS 08/07/20 12/24/22 hydrOXYzine HCL [Atarax] 25 mg PO HS 08/07/20 12/24/22 Albuterol Sulfate [Albuterol 2 puff PO RT-Q6H PRN 12/24/22 12/24/22 Sulfate Hfa] Clobetasol 0.05% Solution 1 applic TOPICAL HS PRN 12/24/22 12/24/22 Dupilumab [Dupixent Pen] 300 mg SQ Q28D 12/24/22 12/24/22 FLUoxetine HCL [PROzac] 60 mg PO DAILY 12/24/22 12/24/22 Fluticasone/Umeclidin/Vilanter 1 puff INHALATION RT-DAILY 12/24/22 12/24/22 [Trelegy Ellipta 100-62.5-25] Previous Rx's Medication Instructions Recorded Acetaminophen Tab [Tylenol] 650 mg PO Q6HR PRN tab 12/28/22 Metoprolol Tartrate [Lopressor] 50 mg PO BID 30 Days #60 tab 12/28/22 Pantoprazole [Protonix] 40 mg PO AC-BRKFST #30 tab 12/28/22 Simethicone 40 mg/0.6 ml Drops 40 mg PO QID PRN ml 12/28/22 [Mylicon Drops] cefUROXime axetiL [Ceftin] 500 mg PO BID 7 Days #14 tab 12/28/22 Allergies Allergy/AdvReac Type Severity Reaction Status Date / Time diphenhydramine HCl Allergy Rapid Verified 12/24/22 11:37 [From Benadryl] Heart Rate pollen,dust,grass,mold Allergy Unknown Uncoded 12/24/22 09:33 Review of Systems ROS Statement: Those systems with pertinent positive or pertinent negative responses have been documented in the HPI. ROS Other: All systems not noted in ROS Statement are negative. 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 Seasonal ALLERGIES. History of Any Multi-Drug Resistant Organisms: None Reported Past Surgical History: Heart Catheterization, Orthopedic Surgery Additional Past Surgical History / Comment(s): rt shoulder rotator cuff. Colonoscopy 2020 Past Anesthesia/Blood Transfusion Reactions: Motion Sickness Additional Past Anesthesia/Blood Transfusion Reaction / Comment(s): "hard time waking me up" Past Psychological History: Anxiety Smoking Status: Never smoker Past Alcohol Use History: Rare Past Drug Use History: None Reported - Past Family History Mother Family Medical History: Cancer Additional Family Medical History / Comment(s): Pancreatic cancer. Father Family Medical History: Myocardial Infarction ([place]) Brother(s) Family Medical History: Cancer Additional Family Medical History / Comment(s): Lung cancer. General Exam Limitations: no limitations Course Vital Signs 10/23/23 10/23/23 18:13 20:31 Temperature 97.8 F Pulse Rate 105 H 96 Respiratory 20 17 Rate Blood Pressure 165/90 156/83 O2 Sat by Pulse 97 99 Oximetry Medical Decision Making - Medical Decision Making Was pt. sent in by a medical professional or institution (, PA, DATA WAREHOUSE CONSULTANT, urgent care, hospital, or fci...) When possible be specific @ -No Did you speak to anyone other than the patient for history (EMS, parent, family, police, friend...)? What history was obtained from this source @ -No Did you review nursing and triage notes (agree or disagree)? Why? @ -I reviewed and agree with nursing and triage notes Were old charts reviewed (outside hosp., previous admission, EMS record, old EKG, old radiological studies, urgent care reports/EKG's, fci records)? Report findings @ -No old charts were reviewed Differential Diagnosis (chest pain, altered mental status, abdominal pain women, abdominal pain men, vaginal bleeding, weakness, fever, dyspnea, syncope, headache, dizziness, GI bleed, back pain, seizure, CVA, palpatations, mental health, musculoskeletal)? @ -Differential Musculoskeletal Muscular strain, contusion, ligament sprain, fracture, arthritis, septic arthritis, bursitis, cellulitis, muscle spasm, nerve compression, DVT, arterial occlusion, herpes zoster, electrolyte abnormality, tumor.... This is not meant to be in all inclusive list EKG interpreted by me (3pts min.). @ -None X-rays interpreted by me (1pt min.). @ -X-ray of the patient's right shoulder and left chest and ribs reveals no acute osseous abnormality. CT interpreted by me (1pt min.). @ -None done U/S interpreted by me (1pt. min.). @ -None done What testing was considered but not performed or refused? (CT, X-rays, U/S, labs)? Why? @ -None What meds were considered but not given or refused? Why? @ -None Did you discuss the management of the patient with other professionals (professionals i.e. , PA, DATA WAREHOUSE CONSULTANT, lab, RT, psych nurse, sr. social media & mobile manager, research psychologist, teacher, small business banking officer, shoe parts caser)? Give summary @ -No Was smoking cessation discussed for >3mins.? @ -No Was critical care preformed (if so, how long)? @ -No Were there social determinants of health that impacted care today? How? (Homelessness, low income, unemployed, alcoholism, drug addiction, transportation, low edu. Level, literacy, decrease access to med. care, half-way, rehab)? @ -No Was there de-escalation of care discussed even if they declined (Discuss DNR or withdrawal of care, Hospice)? DNR status @ -No What co-morbidities impacted this encounter? (DM, HTN, Smoking, COPD, CAD, Cancer, CVA, ARF, Chemo, Hep., AIDS, mental health diagnosis, sleep apnea, morbid obesity)? @ -None Was patient admitted / discharged? Hospital course, mention meds given and route, prescriptions, significant lab abnormalities, going to OR and other pertinent info. @Discharge. 70-year-old female with left-sided rib pain and right shoulder pain. On examination patient was noted to have tenderness over the left lateral ribs and palpation in addition to pain with active range of motion.there were no noted Deficits in auscultation over the patient's lower left lung flowers. X-ray nonconcerning for acute fracture or dislocation at this time. Discussed with patient that symptoms are likely secondary to trauma with fall and contusion. Will be discharged with a few days of pain medication as needed and sent home with an incentive spirometer which she was educated on how to use. Cycle Tylenol Motrin at home in addition to using heat and resting to help with healing. Discussed that patient follow-up with primary care provider next week for further evaluation. Discussed with Dr. Castellon. Undiagnosed new problem with uncertain prognosis? @ -No Drug Therapy requiring intensive monitoring for toxicity (Heparin, Nitro, Insulin, Cardizem)? @ -No Were any procedures done? @ -No Diagnosis/symptom? @ -fall, rib pain from fall, rib contusion Acute, or Chronic, or Acute on Chronic? @ -acute Uncuncomplicated Side effects of treatment? @ -No Exacerbation, Progression, or Severe Exacerbation? @ -No Poses a threat to life or bodily function? How? (Chest pain, [place], [place], pneumonia, PE, COPD, DKA, ARF, appy, cholecystitis, CVA, Diverticulitis, Homicidal, Suicidal, threat to staff... and all critical care pts) @ -No Disposition Clinical Impression: Fall, Contusion of rib on left side Narrative: Please return to the Emergency Department if symptoms worsen or any other concerns. Disposition: HOME SELF-CARE Condition: Good Instructions (If sedation given, give patient instructions): Fall Prevention for Older Adults (ED) Is patient prescribed a controlled substance at d/c from ED?: No Referrals: Ginger Benton MD [Primary Care Provider] - 1-2 days Time of Disposition: 19:26
[2023-10-23] MEDS: ACET/COD 300 MG/30 MG STARTER PACK 6 TAB BTL PO STA (20:25)
[2023-10-23] MEDS: HYDROcodone/APAP 5-325MG 1 EACH TAB PO STA (20:25)
[2023-10-23 21:09] VITALS: BP 156/83; PULSE 96; RESP 17
== END 2023-10-23 20:32 | disposition home or self-care (01) ==
LOC: EC 18:04
DX: S20.212A Contusion of left front wall of thorax, initial encounter (principal); M25.511 Pain in right shoulder; Z88.8 Allergy status to other drugs, medicaments and biological substances; Z91.09 Other allergy status, other than to drugs and biological substances; W01.0XXA Fall on same level from slipping, tripping and stumbling without subsequent striking against object, initial encounter; Y92.39 Other specified sports and athletic area as the place of occurrence of the external cause
CPT/HCPCS: 99283

== ENCOUNTER → 2023-11-15 | Outpatient (CLI) | payer MEDICARE ==
[2023-11-15 19:11] LABS: Basophils # (A) 0.06 X 10*3/uL (0.00-0.10); Basophils % (A) 0.8 %; Eosinophils # (A) 0.22 X 10*3/uL (0.04-0.35); Eosinophils % (A) 3.1 %; HCT 40.3 % (37.2-46.3); HGB 13.3 g/dL (12.0-15.0); Lymphocytes # (A) 1.71 X 10*3/uL (0.90-5.00); Lymphocytes % (A) 24.1 %; MCH 31.6 pg (27.0-32.0); MCV 95.7 FL (80.0-97.0); Mean Platelet Volume 10.5 FL (9.5-12.2); Monocytes % (A) 12.7 %; NRBC Per 100 WBC 0 X 10*3/uL (0.00-0.01); Platelet Count 285 X 10*3/uL (140-440); RBC 4.21 X 10*6/uL (4.10-5.20); RDW 13.2 % (11.5-14.5); WBC 7.11 X 10*3/uL (4.50-10.00)
[2023-11-15 19:44] LABS: ALT 31 U/L (8-44); AST 32 U/L (13-35); Albumin 4.4 g/dL (3.8-4.9); Albumin/Globulin Ratio 1.91 Ratio (1.60-3.17); Alkaline Phosphatase 99 U/L (41-126); BUN/Creat Ratio 16.36 Ratio (12.00-20.00); Calcium 9.8 mg/dL (8.7-10.3); Carbon Dioxide 24.6 mmol/L (21.6-31.8); Chloride 104 mmol/L (96-109); Chol/HDL Ratio 4.07 Ratio; Globulin 2.3 g/dL (1.6-3.3); Glucose 163 mg/dL (70-110); LDL Cholesterol,Calculated 125.8 mg/dL (0.0-131.0); Potassium 4.4 mmol/L (3.5-5.5); Sodium 141 mmol/L (135-145); Total Bilirubin 0.4 mg/dL (0.3-1.2); Total Protein 6.7 g/dL (6.2-8.2)
== END | disposition home or self-care (01) ==
LOC: LABWHC1 12:45
PROVIDERS: ATTEND Family Medicine
DX: I10 Essential (primary) hypertension (principal); E11.65 Type 2 diabetes mellitus with hyperglycemia; E78.5 Hyperlipidemia, unspecified; E03.9 Hypothyroidism, unspecified
CPT/HCPCS: 36415; 80053; 80061; 83036; 84443; 85025

== ENCOUNTER → 2023-11-15 | Outpatient (CLI) | payer MEDICARE ==
[2023-11-15 15:14] VITALS: BP 173/93; PULSE 70; RESP 16; TEMP 98.2
--- NOTE | 2023-11-15 15:28 | P.HPOB ---
History of Present Illness H&P Date: 11/15/23 Chief Complaint: The patient is here for her routine gynecologic exam and ma mmogram. This is a 78-year-old -0-1-3 with an LMP of 1997. The patient is without gynecologic complaints and denies any postmenopausal bleeding. Review of Systems The patient's weight has been stable over the last year. She denies respiratory, cardiac, or G.I. problems. Past Medical History Past Medical History: Asthma, Diabetes Mellitus, Hyperlipidemia, Pneumonia, Skin Disorder, Thyroid Disorder Additional Past Medical History / Comment(s): Type 2 diabetes. 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 Right shoulder problems. Seasonal ALLERGIES. 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 History of Any Multi-Drug Resistant Organisms: None Reported Past Surgical History: Heart Catheterization, Orthopedic Surgery Additional Past Surgical History / Comment(s): rt shoulder rotator cuff. Colonoscopy 2020 Past Anesthesia/Blood Transfusion Reactions: Motion Sickness Additional Past Anesthesia/Blood Transfusion Reaction / Comment(s): "hard time waking me up" Past Psychological History: Anxiety Additional Psychological History / Comment(s): OCD Smoking Status: Never smoker Past Alcohol Use History: Rare ( 2 drinks per year.) Past Drug Use History: None Reported Additional History: She has been since 1970 and is not sexually active. 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 - Past Family History Mother Family Medical History: Cancer Additional Family Medical History / Comment(s): Pancreatic cancer. Father Family Medical History: Myocardial Infarction ([place]) Brother(s) Family Medical History: Cancer Additional Family Medical History / Comment(s): Lung cancer. Medications and Allergies Home Medications Medication Instructions Recorded Confirmed Type Levothyroxine Sodium [Synthroid] 88 mcg PO DAILY 04/14/14 11/15/23 History Liothyronine Sodium [Cytomel] 5 mcg PO DAILY 04/14/14 11/15/23 History Cetirizine HCl [Zyrtec] 10 mg PO DAILY 01/05/15 11/15/23 History ALPRAZolam [Xanax] 0.5 mg PO HS 08/07/20 11/15/23 History Atorvastatin [Lipitor] 20 mg PO HS 08/07/20 11/15/23 History Naltrexone HCl [Revia] 50 mg PO HS 08/07/20 11/15/23 History hydrOXYzine HCL [Atarax] 25 mg PO HS 08/07/20 11/15/23 History Dupilumab [Dupixent Pen] 300 mg SQ Q28D 12/24/22 11/15/23 History Fluticasone/Umeclidin/Vilanter 1 puff INHALATION RT-DAILY 12/24/22 11/15/23 History [Trelegy Ellipta 100-62.5-25] Acetaminophen Tab [Tylenol] 650 mg PO Q6HR PRN tab 12/28/22 11/15/23 Rx Metoprolol Tartrate [Lopressor] 50 mg PO BID 30 Days #60 tab 12/28/22 11/15/23 Rx Blood-Glucose Meter,Continuous 1 unit INJ DIRECTED 11/15/23 11/15/23 History [Freestyle Nelida 3 [place]olverine] FLUoxetine HCL [PROzac] 20 mg PO DAILY 11/15/23 11/15/23 History Phentermine HCl [Adipex-P] 37.5 mg PO DAILY 11/15/23 11/15/23 History metFORMIN HCL ER [Glucophage XR] 500 mg PO DAILY 11/15/23 11/15/23 History Allergies Allergy/AdvReac Type Severity Reaction Status Date / Time diphenhydramine HCl Allergy Rapid Verified 12/24/22 11:37 [From Benadryl] Heart Rate pollen,dust,grass,mold Allergy Unknown Uncoded 12/24/22 09:33 Exam Vital Signs Temp Pulse Resp BP Pulse Ox 11/15/23 14:25 98.2 F 70 16 173/93 97 Intake and Output 11/15/23 11/15/23 11/15/23 06:59 14:59 22:59 Other: Weight 88.904 kg Height 5 feet 6 inches, weight 196 pounds, BMI 31.6. This is a well-developed well-nourished white female who is alert and oriented times 3 in no acute distress. HEENT: Within normal limits. NECK: Supple without mass or thyromegaly. CHEST AND LUNGS: Clear to auscultation. HEART: Regular rate and rhythm. BREASTS: Are without mass or discharge. AXILLARY EXAM: Negative for adenopathy. BACK: Negative for CVA tenderness. ABDOMEN: Soft, nontender, without palpable masses. PELVIC EXAM: Normal external genitalia with mild to moderate atrophy. There is a urethral opening caruncle which appears benign and unchanged from her previous exams. Cervix and vagina appear normal with mild to moderate atrophy. There is no unusual discharge. There is no evidence of prolapse. The uterus is midposition, nongravid size and nontender. There are no palpable adnexal masses or tenderness. RECTAL EXAM: Rectovaginal exam is negative for mass or tenderness and is negative for occult blood. EXTREMITIES: Nontender. IMPRESSION: 1. 78-year-old menopausal female with normal gynecologic exam. 2. Stable benign-appearing urethral opening caruncle. 3. History of right ovarian cyst measuring 2.3 cm and this has been followed co nservatively since 10/21/2021. 4. Elevated blood pressure. PLAN: 1. Pap smears have been discontinued. 2. Self breast awareness was discussed with the patient. We have also discussed symptoms associated with inflammatory breast cancer. 3. Screening mammogram was done today. 4. Pelvic ultrasound was recommended to follow the right ovarian cyst. The order slip was given to the patient for this. 5. Osteoporosis prevention was discussed. I have stressed the importance of adequate calcium, vitamin D and regular exercise. Recommended amounts of calcium and vitamin D were also discussed. 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 She would like to now do the bone density test at [facility]. This will be done today. 6. We have discussed her elevated blood pressure. She states she does not take blood pressure medicine at this time. She does have a blood pressure cuff at home and I have recommended that she check her blood pressure regularly at home. She has to follow-up with Dr. Benton for blood pressure elevations. 7. She was advised to return in one year for her annual well woman exam.
--- NOTE | 2023-11-15 16:37 | BD ---
EXAMINATION TYPE: Axial Bone Density DATE OF EXAM: 11/15/2023 CLINICAL HISTORY: 78 years old Female. ICD-10 CODE: Z78.0 POST [place] WITHOUT HRT Height: 63" Weight: 196lbs FRAX RISK QUESTIONS: Alcohol (3 or more units per day): No Family History (Parent hip fracture): No Glucocorticoids (More than 3mos): No (Ex: prednisone, prednisolone, methylprednisolone, dexamethasone, and hydrocortisone). History of Fracture in Adulthood: Yes Secondary Osteoporosis: 1. Type 1 Diabetes: No 2. Hyperthyroidism: No 3. Menopause before 45: No 4. Malnutrition: No 5. Chronic liver disease: No Rheumatoid Arthritis: No Current Tobacco Use: No RISK FACTORS HISTORY OF: Hip Fracture (Right/Left): No Spine Fracture: No History of Wrist Fracture: No Surgery to Spine/Hip(right/left)/Wrist (right/left): No MEDICATIONS: Thyroid Medications: Yes, approx. 10 years Osteoporosis Medications: No EXAM MEASUREMENTS: Bone mineral densitometry was performed using the Smart Patients System. Bone mineral density as measured about the Lumbar spine is: ----- L1-L4(G/cm2): 1.213 T Score Values are as follows: ----- L1: -0.7 ----- L2: 0.3 ----- L3: 0.4 ----- L4: 0.9 ----- L1-L4: 0.3 Z Score Values are as follows: ----- L1: 0.3 ----- L2: 1.3 ----- L3: 1.4 ----- L4: 1.9 ----- L1-L4: 1.3 Baseline @[facility] Bone mineral density about the R hip (g/cm2): 0.993 Bone mineral density about the L hip (g/cm2): 1.024 T Score values are as follows: -----R Neck: -0.3 -----L Neck: -0.1 -----R Total: -0.1 -----L Total: 0.1 Z Score values are as follows: -----R Neck: 1.3 -----L Neck: 1.5 -----R Total: 1.2 -----L Total: 1.5 Baseline @[facility] FRAX%s: The graph provided illustrates a 12.9% chance for a major osteoporotic fx and a 1.5% chance f or the hips probability for fx in 10 years time. IMPRESSION: Normal (Values between +1 and -1 indicate normal bone mass). Consider repeating this study in 5 year s or sooner if there is some new clinical indication. NOTE: T-SCORE=SD OF THE YOUNG ADULT MEAN.
--- NOTE | 2023-11-17 18:55 | MM ---
Reason for Exam: Screening (asymptomatic). Last screening mammogram was performed 12 month(s) ago. Patient History: Menarche at age 13. First Full-Term at age 30. Late child-bearing (after 30). Postmenopausal. Patient has history of breast feeding. Estrogen and Progesterone, starting at age 51 for 5 years. 2019, Benign Excisional Biopsy on the right side. Risk Values: Hillary 5 year model risk: 2.8%. NCI Lifetime model risk: 5.0%. Prior Study Comparison: 09/23/2020 Bilateral MG 3D screening mammo w/cad, [facility]. 10/15/2021 Bilateral MG 3D screening mammo w/cad, [facility]. 11/09/2022 Bilateral MG 3D screening mammo w/cad, [facility]. Tissue Density: The breasts are heterogeneously dense, which may obscure small masses. Findings: Analyzed By CAD. Unchanged excisional scar on the right. Unchanged benign bilateral calcifications. There is no suspicious group of microcalcifications or new suspicious mass in either breast. Overall Assessment: Benign, BI-RAD 2 Management: Screening Mammogram of both breasts in 1 year. . Patient should continue monthly self-breast exams. A clinical breast exam by your physician is recommended on an annual basis. This exam should not preclude additional follow-up of suspicious palpable abnormalities. Note on Hillary scores and lifetime risk: 1. A Hillary score greater than 3% is considered moderate risk. If this is the case, consider specialist referral to assess eligibility for a risk reducing agent. 2. If overall lifetime risk for the development of breast cancer is 20% or higher, the patient may qualify for future screening with alternating mammogram and breast MRI. Electronically signed and approved by: José Shi M.D. Radiologist
== END ==
LOC: WWCWWP 13:55
PROVIDERS: ATTEND Obstetrics & Gynecology
DX: Z12.31 Encounter for screening mammogram for malignant neoplasm of breast (principal); Z01.419 Encounter for gynecological examination (general) (routine) without abnormal findings; N36.2 Urethral caruncle; R03.0 Elevated blood-pressure reading, without diagnosis of hypertension; Z78.0 Asymptomatic menopausal state; Z87.42 Personal history of other diseases of the female genital tract; Z88.8 Allergy status to other drugs, medicaments and biological substances; Z91.09 Other allergy status, other than to drugs and biological substances; Z91.048 Other nonmedicinal substance allergy status; Z79.899 Other long term (current) drug therapy
CPT/HCPCS: 77063; 77067; 77080

== ENCOUNTER → 2023-12-07 | Outpatient (CLI) | payer MEDICARE ==
--- NOTE | 2023-12-11 16:20 | US ---
EXAMINATION TYPE: US pelvis complete transvag DATE OF EXAM: 12/07/2023 COMPARISON: 11/25/22 CLINICAL INDICATION: Female, 78 years old with history of N83.201 OVARIAN CYST; f/u rt cyst TECHNIQUE: Transvaginal (TV) and Transabdominal (TA) . Transabdominal sonographic images of the pel vis were acquired. Transvaginal sonographic images were medically necessary to better assess the fol lowing anatomy: Ovaries Date of LMP: post-dalton EXAM MEASUREMENTS: Uterus: 2.6x2.1x2.1 cm Endometrial Stripe: 0.2 cm Right Ovary: 2.6x2.1x2.1 cm Left Ovary: obscured by bowel 1. Uterus: Retroverted atrophic, calcifications throughout again seen. 2. Endometrium: wnl, trace fluid within 3. Right Ovary: 2.2x2.0x2.1cm cystic area again seen. No significant change. 4. Left Ovary: Obscured by overlying bowel gas 5. Bilateral Adnexa: Obscured by overlying bowel gas 6. Posterior cul-de-sac: wnl exam limited by shadowing calcs, bowel gas Redemonstration of atrophic uterus correlate with patient's postmenopausal status. Dystrophic calcifi cations are again present. Small amount of fluid identified within the endometrial canal. No endometr ial stripe thickening identified. Right ovarian simple thin-walled cysts is stable. Left ovary is not seen due to overlying bowel gas. IMPRESSION: Limited examination due to overlying bowel gas. Stable 2.2 cm thin-walled cyst within the right ovary.
--- NOTE | 2023-12-14 14:15 | P.PN ---
Progress Note - Text Progress Note Date: 12/14/23 OUTPATIENT FOLLOW-UP NOTE TEST(S)/RESULTS: Pelvic ultrasound done on 12/07/2023 shows a stable 2.2 cm right ovarian cyst. There is no significant change from her previous ultrasound. METHOD OF NOTIFICATION: A message with this result was left on the patient's voicemail on 12/14/2023. PATIENT COMMENTS: DIAGNOSIS: Benign stable 2.2 cm right ovarian cyst in a postmenopausal female. DISCUSSION: PLAN: Repeat the pelvic ultrasound in 1 year. She was advised to return in one year for her annual well woman exam.
== END | disposition home or self-care (01) ==
LOC: RADUSWWP 12:37
PROVIDERS: ATTEND Obstetrics & Gynecology
DX: N83.201 Unspecified ovarian cyst, right side (principal)
CPT/HCPCS: 76830; 76856

== ENCOUNTER 2023-12-10 19:42 | Emergency (ER) | payer MEDICARE ==
[2023-12-10 20:31] LABS: Amorphous Sediment,Urine Rare /hpf; Appearance,Urine Cloudy (Clear); Bacteria,Urine Few /hpf; Bilirubin,Urine Negative (Negative); Blood,Urine Negative (Negative); Color,Urine Yellow; Glucose,Urine (UA) Negative (Negative); Hyaline Casts,Urine 1 /lpf (0-2); Ketones,Urine Negative (Negative); Leukocyte Esterase,Urine Large (Negative); Mucus,Urine Occasional /hpf; Nitrite,Urine Negative (Negative); PH, Urine 5.5 (5.0-8.0); Protein,Urine Trace (Negative); RBC,Urine 4 /hpf (0-5); Specific Gravity,Urine 1.027 (1.001-1.035); Squamous Epithelial Cell,Urine 4 /hpf (0-4); Urobilinogen,Urine <2.0 mg/dL (<2.0); WBC,Urine 58 /hpf (0-5)
--- NOTE | 2023-12-10 22:21 | ED ---
General Adult HPI - General Chief complaint: Abdominal Pain Stated complaint: abd pain Time Seen by Provider: 12/10/23 22:10 Source: patient, RN notes reviewed, old records reviewed Mode of arrival: ambulatory Limitations: no limitations - History of Present Illness Initial comments: 78-year-old female presenting with chief complaint of abdominal pain which is predominantly periumbilical present throughout the day today associated nausea and vomiting as well as diarrhea. Patient started Ozempic 2 days prior. Denies fever. - Related Data Home Medications Medication Instructions Recorded Confirmed Levothyroxine Sodium [Synthroid] 88 mcg PO DAILY 04/14/14 11/15/23 Liothyronine Sodium [Cytomel] 5 mcg PO DAILY 04/14/14 11/15/23 Cetirizine HCl [Zyrtec] 10 mg PO DAILY 01/05/15 11/15/23 ALPRAZolam [Xanax] 0.5 mg PO HS 08/07/20 11/15/23 Atorvastatin [Lipitor] 20 mg PO HS 08/07/20 11/15/23 Naltrexone HCl [Revia] 50 mg PO HS 08/07/20 11/15/23 hydrOXYzine HCL [Atarax] 25 mg PO HS 08/07/20 11/15/23 Dupilumab [Dupixent Pen] 300 mg SQ Q28D 12/24/22 11/15/23 Fluticasone/Umeclidin/Vilanter 1 puff INHALATION RT-DAILY 12/24/22 11/15/23 [Teresa Gannta 100-62.5-25] Blood-Glucose Meter,Continuous 1 unit INJ DIRECTED 11/15/23 11/15/23 [Freestyle Nelida 3 Smock] FLUoxetine HCL [PROzac] 20 mg PO DAILY 11/15/23 11/15/23 Phentermine HCl [Adipex-P] 37.5 mg PO DAILY 11/15/23 11/15/23 metFORMIN HCL ER [Glucophage XR] 500 mg PO DAILY 11/15/23 11/15/23 Previous Rx's Medication Instructions Recorded Acetaminophen Tab [Tylenol] 650 mg PO Q6HR PRN tab 12/28/22 Metoprolol Tartrate [Lopressor] 50 mg PO BID 30 Days #60 tab 12/28/22 Cephalexin [Keflex] 500 mg PO Q12HR #20 cap 12/11/23 Allergies Allergy/AdvReac Type Severity Reaction Status Date / Time diphenhydramine HCl Allergy Rapid Verified 12/10/23 19:54 [From Benadryl] Heart Rate pollen,dust,grass,mold Allergy Unknown Uncoded 12/10/23 19:54 Review of Systems ROS Statement: Those systems with pertinent positive or pertinent negative responses have been documented in the HPI. ROS Other: All systems not noted in ROS Statement are negative. Past Medical History Past Medical History: Asthma, Diabetes Mellitus, Hyperlipidemia, Pneumonia, Skin Disorder, Thyroid Disorder Additional Past Medical History / Comment(s): Type 2 diabetes. 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 Right shoulder problems. Seasonal ALLERGIES. 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 History of Any Multi-Drug Resistant Organisms: None Reported Past Surgical History: Heart Catheterization, Orthopedic Surgery Additional Past Surgical History / Comment(s): rt shoulder rotator cuff. Colonoscopy 2020 Past Anesthesia/Blood Transfusion Reactions: Motion Sickness Additional Past Anesthesia/Blood Transfusion Reaction / Comment(s): "hard time waking me up" Past Psychological History: Anxiety Smoking Status: Never smoker Past Alcohol Use History: Rare Past Drug Use History: None Reported - Past Family History Mother Family Medical History: Cancer Additional Family Medical History / Comment(s): Pancreatic cancer. Father Family Medical History: Myocardial Infarction ([place]) Brother(s) Family Medical History: Cancer Additional Family Medical History / Comment(s): Lung cancer. General Exam Limitations: no limitations General appearance: alert, in no apparent distress Head exam: Present: atraumatic, normocephalic Eye exam: Present: normal appearance, PERRL ENT exam: Present: normal exam Neck exam: Present: normal inspection. Absent: tenderness, meningismus Respiratory exam: Present: normal lung sounds bilaterally. Absent: respiratory distress, wheezes Cardiovascular Exam: Present: regular rate, normal rhythm GI/Abdominal exam: Present: soft, tenderness (Left lower quadrant). Absent: distended Extremities exam: Present: normal inspection, normal capillary refill Neurological exam: Present: alert, oriented X3 Course Vital Signs 12/10/23 12/11/23 19:52 00:29 Temperature 98.2 F Pulse Rate 82 88 Respiratory 18 16 Rate Blood Pressure 156/80 188/93 O2 Sat by Pulse 97 98 Oximetry Medical Decision Making - Medical Decision Making Was pt. sent in by a medical professional or institution (ROSA Sheffield, SYSTEMS TESTER, urgent care, hospital, or snf...) When possible be specific @ -No Did you speak to anyone other than the patient for history (EMS, parent, family, police, friend...)? What history was obtained from this source @ -No Did you review nursing and triage notes (agree or disagree)? Why? @ -I reviewed and agree with nursing and triage notes Were old charts reviewed (outside hosp., previous admission, EMS record, old EKG, old radiological studies, urgent care reports/EKG's, snf records)? Report findings @ -No old charts were reviewed Functional abdominal pain woman EKG interpreted by me (3pts min.). @ -[Sinus rhythm rate of 79, MO interval 195, QRS duration 95, QTc [address] segment elevation. X-rays interpreted by me (1pt min.). @ - CT interpreted by me (1pt min.). @ -CT abdomen pelvis negative for acute pathology. U/S interpreted by me (1pt. min.). @ -None done What testing was considered but not performed or refused? (CT, X-rays, U/S, labs)? Why? @ -None What meds were considered but not given or refused? Why? @ -None Did you discuss the management of the patient with other professionals (professionals i.e. ROSA Sheffield, SYSTEMS TESTER, lab, RT, psych nurse, social worker health services, young adult librarian, teacher, deck officer, heel caser)? Give summary @ -No Was smoking cessation discussed for >3mins.? @ -No Was critical care preformed (if so, how long)? @ -No Were there social determinants of health that impacted care today? How? (Homelessness, low income, unemployed, alcoholism, drug addiction, transportation, low edu. Level, literacy, decrease access to med. care, halfway, rehab)? @ -No Was there de-escalation of care discussed even if they declined (Discuss DNR or withdrawal of care, Hospice)? DNR status @ -No What co-morbidities impacted this encounter? (DM, HTN, Smoking, COPD, CAD, Cancer, CVA, ARF, Chemo, Hep., AIDS, mental health diagnosis, sleep apnea, morbid obesity)? @ -[Diabetes. Was patient admitted / discharged? Hospital course, mention meds given and route, prescriptions, significant lab abnormalities, going to OR and other pertinent info. @ -78-year-old female with abdominal pain vomiting and diarrhea. This was after starting Ozempic. Patient did have focal tenderness and workup was performed including laboratory testing and CT. Patient has normal CBC, normal CMP, urinalysis positive for leukocytes. CT negative for acute findings. Patient will be treated for UTI and given strict return parameters and she shoul d follow-up with her primary care provider. Undiagnosed new problem with uncertain prognosis? @ -No Drug Therapy requiring intensive monitoring for toxicity (Heparin, Nitro, Insulin, Cardizem)? @ -No Were any procedures done? @ -No Diagnosis/symptom? @ -Abdominal pain, UTI Acute, or Chronic, or Acute on Chronic? @ -[Acute Uncomplicated (without systemic symptoms) or Complicated (systemic symptoms)? @ -Default Side effects of treatment? @ -No Exacerbation, Progression, or Severe Exacerbation? @ -No Poses a threat to life or bodily function? How? (Chest pain, [place], [place], pneumonia, PE, COPD, DKA, ARF, appy, cholecystitis, CVA, Diverticulitis, Homicidal, Suicidal, threat to staff... and all critical care pts) @ -low Risk at this time - Lab Data Result diagrams: 12/10/23 22:50 12/10/23 22:50 Lab Results 12/10/23 12/10/23 12/10/23 Range/Units 20:02 22:50 22:50 WBC 9.5 (3.8-10.6) k/uL RBC 4.42 (3.80-5.40) m/uL Hgb 13.6 (11.4-16.0) gm/dL Hct 41.0 (34.0-46.0) % MCV 92.8 (80.0-100.0) fL MCH 30.7 (25.0-35.0) pg MCHC 33.1 (31.0-37.0) g/dL RDW 12.4 (11.5-15.5) % Plt Count 249 (150-450) k/uL MPV 7.9 Neutrophils % 70 % Lymphocytes % 20 % Monocytes % 6 % Eosinophils % 2 % Basophils % 0 % Neutrophils # 6.7 (1.3-7.7) k/uL Lymphocytes # 1.9 (1.0-4.8) k/uL Monocytes # 0.5 (0-1.0) k/uL Eosinophils # 0.2 (0-0.7) k/uL Basophils # 0.0 (0-0.2) k/uL PT 10.2 (10.0-12.5) sec INR 0.9 (<1.2) APTT 25.1 (22.0-30.0) sec Sodium (137-145) mmol/L Potassium (3.5-5.1) mmol/L Chloride (98-107) mmol/L Carbon Dioxide (22-30) mmol/L Anion Gap mmol/L BUN (7-17) mg/dL Creatinine (0.52-1.04) mg/dL Est GFR (CKD-EPI)AfAm (>60 ml/min/1.73 sqM) Est GFR (CKD-EPI)NonAf (>60 ml/min/1.73 sqM) Glucose (74-99) mg/dL Plasma Lactic Acid Kory (0.7-2.0) mmol/L Calcium (8.4-10.2) mg/dL Total Bilirubin (0.2-1.3) mg/dL AST (14-36) U/L ALT (4-34) U/L Alkaline Phosphatase (38-126) U/L Total Protein (6.3-8.2) g/dL Albumin (3.5-5.0) g/dL Amylase (30-110) U/L Lipase (23-300) U/L Urine Color Yellow Urine Appearance Cloudy H (Clear) Urine pH 5.5 (5.0-8.0) Ur Specific [place] 1.027 (1.001-1.035) Urine Protein Trace H (Negative) Urine Glucose (UA) Negative (Negative) Urine Ketones Negative (Negative) Urine Blood Negative (Negative) Urine Nitrite Negative (Negative) Urine Bilirubin Negative (Negative) Urine Urobilinogen <2.0 (<2.0) mg/dL Ur Leukocyte Esterase Large H (Negative) Urine RBC 4 (0-5) /hpf Urine WBC 58 H (0-5) /hpf Ur Squamous Epith Cells 4 (0-4) /hpf Amorphous Sediment Rare H (None) /hpf Urine Bacteria Few H (None) /hpf Hyaline Casts 1 (0-2) /lpf Urine Mucus Occasional H (None) /hpf 12/10/23 12/10/23 Range/Units 22:50 22:50 WBC (3.8-10.6) k/uL RBC (3.80-5.40) m/uL Hgb (11.4-16.0) gm/dL Hct (34.0-46.0) % MCV (80.0-100.0) fL MCH (25.0-35.0) pg MCHC (31.0-37.0) g/dL RDW (11.5-15.5) % Plt Count (150-450) k/uL MPV Neutrophils % % Lymphocytes % % Monocytes % % Eosinophils % % Basophils % % Neutrophils # (1.3-7.7) k/uL Lymphocytes # (1.0-4.8) k/uL Monocytes # (0-1.0) k/uL Eosinophils # (0-0.7) k/uL Basophils # (0-0.2) k/uL PT (10.0-12.5) sec INR (<1.2) APTT (22.0-30.0) sec Sodium 135 L (137-145) mmol/L Potassium 4.3 (3.5-5.1) mmol/L Chloride 107 (98-107) mmol/L Carbon Dioxide 21 L (22-30) mmol/L Anion Gap 7 mmol/L BUN 21 H (7-17) mg/dL Creatinine 0.80 (0.52-1.04) mg/dL Est GFR (CKD-EPI)AfAm 82 (>60 ml/min/1.73 sqM) Est GFR (CKD-EPI)NonAf 71 (>60 ml/min/1.73 sqM) Glucose 124 H (74-99) mg/dL Plasma Lactic Acid Kory 0.8 (0.7-2.0) mmol/L Calcium 9.9 (8.4-10.2) mg/dL Total Bilirubin 0.6 (0.2-1.3) mg/dL AST 32 (14-36) U/L ALT 30 (4-34) U/L Alkaline Phosphatase 93 (38-126) U/L Total Protein 7.0 (6.3-8.2) g/dL Albumin 4.4 (3.5-5.0) g/dL Amylase 67 (30-110) U/L Lipase 119 (23-300) U/L Urine Color Urine Appearance (Clear) Urine pH (5.0-8.0) Ur Specific [place] (1.001-1.035) Urine Protein (Negative) Urine Glucose (UA) (Negative) Urine Ketones (Negative) Urine Blood (Negative) Urine Nitrite (Negative) Urine Bilirubin (Negative) Urine Urobilinogen (<2.0) mg/dL Ur Leukocyte Esterase (Negative) Urine RBC (0-5) /hpf Urine WBC (0-5) /hpf Ur Squamous Epith Cells (0-4) /hpf Amorphous Sediment (None) /hpf Urine Bacteria (None) /hpf Hyaline Casts (0-2) /lpf Urine Mucus (None) /hpf Disposition Clinical Impression: Abdominal pain Disposition: HOME SELF-CARE Condition: Good Instructions (If sedation given, give patient instructions): Abdominal Pain (ED) Prescriptions: Cephalexin [Keflex] 500 mg PO Q12HR #20 cap Is patient prescribed a controlled substance at d/c from ED?: No Referrals: Ginger Benton MD [Primary Care Provider] - 1-2 days Time of Disposition: 02:41
[2023-12-10 23:10] LABS: Basophils % (A) 0 %; Eosinophils # (A) 0.2 k/uL (0-0.7); Eosinophils % (A) 2 %; HGB 13.6 gm/dL (11.4-16.0); Lymphocytes # (A) 1.9 k/uL (1.0-4.8); Lymphocytes % (A) 20 %; MCH 30.7 pg (25.0-35.0); MCHC 33.1 g/dL (31.0-37.0); MCV 92.8 fL (80.0-100.0); Mean Platelet Volume 7.9; Monocytes # (A) 0.5 k/uL (0-1.0); Monocytes % (A) 6 %; Neutrophils # (A) 6.7 k/uL (1.3-7.7); Neutrophils % (A) 70 %; Platelet Count 249 k/uL (150-450); RBC 4.42 m/uL (3.80-5.40); RDW 12.4 % (11.5-15.5); WBC 9.5 k/uL (3.8-10.6)
[2023-12-10 23:22] LABS: ALT 30 U/L (4-34); AST 32 U/L (14-36); African American GFR (CKD) 82 (>60 ml/min/1.73 sqM); Albumin 4.4 g/dL (3.5-5.0); Alkaline Phosphatase 93 U/L (38-126); Amylase 67 U/L (30-110); Anion Gap 7 mmol/L; Blood Urea Nitrogen 21 mg/dL (7-17); Calcium 9.9 mg/dL (8.4-10.2); Carbon Dioxide 21 mmol/L (22-30); Chloride 107 mmol/L (98-107); Glucose 124 mg/dL (74-99); Lipase 119 U/L (23-300); Non-African American GFR(CKD) 71 (>60 ml/min/1.73 sqM); Potassium 4.3 mmol/L (3.5-5.1); Sodium 135 mmol/L (137-145); Total Bilirubin 0.6 mg/dL (0.2-1.3)
[2023-12-10 23:44] LABS: INR 0.9 (<1.2); Partial Thromboplastin Time 25.1 sec (22.0-30.0); Prothrombin Time 10.2 sec (10.0-12.5)
[2023-12-11] MEDS: SODIUM CHLORIDE 0.9% 500 ML 500 ML IV ONE (00:25)
[2023-12-11 01:04] VITALS: RESP 16
[2023-12-11] MEDS: ONDANSETRON 4 MG/2 ML VIAL IVP STA (01:24)
[2023-12-11] MEDS: MORPHINE SULFATE 2 MG/ML SYRINGE IVP STA (01:25)
--- NOTE | 2023-12-11 02:31 | CT ---
EXAM: CT Abdomen and Pelvis Without Intravenous Contrast CLINICAL HISTORY: ITS.REASON CT Reason: abdominal pain TECHNIQUE: Axial computed tomography images of the abdomen and pelvis without intravenous contrast. CTDI is 24.9 mGy and DLP is 1153.8 mGy-cm. This CT exam was performed using one or more of the following dose reduction techniques: automated exposure control, adjustment of the mA and/or kV according to patient size, and/or use of iterative reconstruction technique. COMPARISON: CT abdomen and pelvis December 24, 2022. FINDINGS: Lung bases: Unremarkable. No mass. No consolidation. ABDOMEN: Liver: Unremarkable. Gallbladder and bile ducts: Unremarkable. No calcified stones. No ductal dilation. Pancreas: Unremarkable. No ductal dilation. Spleen: Unremarkable. No splenomegaly. Adrenals: Unremarkable. No mass. Kidneys and ureters: Unremarkable. No renal stones or hydronephrosis. Stomach and bowel: Unremarkable. No acute diverticulitis. No bowel obstruction. No free air. PELVIS: Appendix: Normal appendix. Bladder: Decompressed urinary bladder. No stones. Reproductive: Unremarkable as visualized. ABDOMEN and PELVIS: Intraperitoneal space: See above. Bones/joints: Degenerative changes of the spine. No acute fracture. No dislocation. Soft tissues: Unremarkable. Vasculature: Atherosclerotic changes of the aorta. No abdominal aortic aneurysm. Lymph nodes: Unremarkable. No enlarged lymph nodes. IMPRESSION: No acute diverticulitis. No bowel obstruction. No free air.
[2023-12-11 04:31] VITALS: BP 130/66; PULSE 79; TEMP 98.5
== END 2023-12-11 03:30 | disposition home or self-care (01) ==
LOC: EC 19:42
DX: R10.32 Left lower quadrant pain (principal); Z88.8 Allergy status to other drugs, medicaments and biological substances
CPT/HCPCS: 36415; 93005; 80053; 82150; 83605; 83690; 85025; 85610; 85730; 81001; 74176; 99284; 96374; 96375; 96361; J2405; J2270; 74177

== ENCOUNTER → 2024-02-17 | Outpatient (CLI) | payer MEDICARE ==
--- NOTE | 2024-03-17 20:21 | CT ---
Patient: Geetha Blackwood D Ordering Physician: Unknown, Unknown ID: [id number] Phone, Pager: Phone: N/A Pager: N/A : 1945 Age/Gender: 79Y, F Primary Location: N/A Procedure: CT shoulder RT wo con Study Date: 02/17/2024 1:18:00 PM EXAMINATION TYPE: CT shoulder RT wo con DATE OF EXAM: 03/02/2024 COMPARISON: Plain films 10/23/2023 HISTORY: Pain CT DLP: 45.5 mGycm Automated exposure control for dose reduction was used. Contrast: None Technique: Axial images 3 mm thick sections. Reconstructed images in coronal and sagittal planes. FINDINGS: There is loss of the glenohumeral junction. There is a staple like device within the anterior inferio r glenoid. This extends to the articular surface. Some contact with the humeral head may be present. Mild humeral head deformity is present. Humeral head spurring is evident. Acromioclavicular junction is mild degenerative change. Acromiohumeral space is preserved. No acute f ractures are identified. IMPRESSION: 1. ADVANCED OSTEOARTHRITIC DEGENERATIVE CHANGES GLENOHUMERAL JUNCTION. 2. METALLIC DEVICE ALONG THE ANTERIOR INFERIOR GLENOID MAY EXTEND TO THE ARTICULAR SURFACE WITH CONTA CT WITH THE HUMERAL HEAD.
== END | disposition home or self-care (01) ==
LOC: RADCTMAIN 13:08
PROVIDERS: ATTEND Orthopaedic Surgery Sports Medicine
DX: M75.41 Impingement syndrome of right shoulder (principal); M19.111 Post-traumatic osteoarthritis, right shoulder; M17.12 Unilateral primary osteoarthritis, left knee; M19.011 Primary osteoarthritis, right shoulder

== ENCOUNTER → 2024-02-21 | Outpatient (CLI) | payer MEDICARE | END | disposition home or self-care (01) | LOC: LABPAT 13:11 | PROVIDERS: ATTEND Orthopaedic Surgery Sports Medicine | DX: Z01.812 Encounter for preprocedural laboratory examination (principal); M19.011 Primary osteoarthritis, right shoulder | CPT/HCPCS: 87070 ==

== ENCOUNTER 2024-03-01 11:40 | Observation (INO) | payer MEDICARE ==
[~2024-03-01 11:40] MED LIST: ACETAMINOPHEN TAB 500 MG TAB ONE; DEXAMETHASONE SOD PHOSPHATE 4 MG/ML 1 ML VIAL ONE; GLYCOPYRROLATE 0.2 MG/ML 2 ML VIAL ONE; LACTATED RINGERS 1,000 ML BAG ONE; LIDOCAINE 1% INJ 10MG/ML (20 ML MDV) ONE; MELOXICAM 7.5 MG TAB ONE; MIDAZOLAM 2 MG/2 ML VIAL ONE; NEOSTIGMINE 1 MG/ML 10 ML VIAL ONE; ONDANSETRON 4 MG/2 ML VIAL ONE; PROPOFOL 10 MG/ML 20 ML VIAL IV ONE; ROCURONIUM 10 MG/ML (5 ML VIAL) IV ONE; ROPIVACAINE 5 MG/ML 30 ML VIAL ONE; SODIUM CHLORIDE 0.9% (PF) VIAL 0 ML ONE; SODIUM CHLORIDE 0.9% 1,000 ML BAG ONE; SODIUM CHLORIDE 0.9% 500 ML BAG ONE; SUCCINYLCHOLINE CHLORIDE 200 MG/10 ML VIAL IV ONE; TRANEXAMIC 1,000 MG/100ML-NACL PREMIX BAG ONE; VANCOMYCIN 1,000 MG VIAL ONE; ceFAZolin 1,000 MG VIAL ONE; fentaNYL (PF) 50 MCG/ML 2 ML AMP ONE
[2024-03-01] MEDS ORDERED: SENNOSIDES-DOCUSATE SODIUM 1 EACH TAB PO ONE ×2 (21:32)
[2024-03-01] MEDS ORDERED: INSULIN ASPART (NovoLOG) 100 UNIT/ML VIAL SQ ONE ×2 (21:33)
[2024-03-01] MEDS ORDERED: HYDROmorphone 0.5 MG/0.5 ML SYRINGE ONE ×2 (23:24)
[2024-03-02] MEDS ORDERED: INSULIN ASPART (NovoLOG) 100 UNIT/ML VIAL SQ ONE (00:01)
[2024-03-02] MEDS ORDERED: ceFAZolin 1,000 MG VIAL ONE (00:01)
[2024-03-02] MEDS ORDERED: SODIUM CHLORIDE 0.9% 50 ML BAG ONE (00:01)
[2024-03-02] MEDS ORDERED: HYDROmorphone 0.5 MG/0.5 ML SYRINGE ONE ×4 (02:53→05:47)
[2024-03-02] MEDS ORDERED: HYDROcodone/APAP 10-325MG 1 EACH TAB ONE ×4 (08:54→13:24)
[2024-03-02] MEDS ORDERED: MULTIVITAMINS, THERA 1 EACH TAB ONE ×2 (08:54)
--- NOTE | 2024-03-02 15:58 | OP ---
OPERATIVE REPORT DATE OF SERVICE : 03/01/2024 IT AUDITOR: Suhas Prasad PA-C. PREOPERATIVE DIAGNOSES: 1. Right shoulder advanced glenohumeral osteoarthrosis. 2. Retained metallic staple in the glenoid. POSTOPERATIVE DIAGNOSES: 1. Right shoulder advanced glenohumeral osteoarthrosis. 2. Right shoulder supraspinatus tear. 3. Right shoulder retained glenoid metallic staple. PROCEDURES PERFORMED: 1. Right reverse total shoulder arthroplasty. 2. Right shoulder removal of retained metallic staple in glenoid. ANESTHESIA: General endotracheal. ESTIMATED BLOOD LOSS: 100 mL. DRAINS: None. COMPLICATIONS: None apparent. DISPOSITION: Postanesthesia care unit. INDICATIONS: Geetha is a very pleasant 79-year-old female with longstanding right shoulder pain. Workup including x-rays and a CT scan revealed advanced osteoarthrosis of the right shoulder. She did have a previous surgery with a staple capsulorrhaphy, which was done over 30 years ago. The staple was retained within the anterior glenoid neck. At this point, she feels that she has failed conservative management, she would like to proceed with operative intervention. The risks of procedure were discussed with her in detail. These risks include, but are not limited to risk of infection, nerve damage, bleeding, pain, instability in the shoulder, loosening of implants, and deep infection. There is also a small risk of deep vein thrombosis which could lead to fatal pulmonary embolism. The patient understood these risks. All of her questions with regard to the risks of procedure were answered to her satisfaction. Appropriate informed consent was obtained. DESCRIPTION OF PROCEDURE: The patient was identified in preoperative holding area. Surgical site was marked by both the patient and myself. She was given 2 g of Ancef IV for prophylactic purposes. She was then transported to the operative suite. She was placed supine on the operating room table. A general anesthetic was then administered and dosed per the anesthesia department without apparent complication. Examination under anesthesia was then performed of the right shoulder. She had elevation to 110 degrees. External rotation at the side was to 10 degrees. The patient was then placed into the beach chair position, well-padded in preparation for surgery. Great care was taken to ensure that her cervical spine was in neutral alignment, well-padded, and maintained that way throughout the operative procedure. Great care was also taken to ensure that her legs were appropriately padded as well. The patient's right upper extremity was then prepped and draped in usual sterile fashion. Standard surgical pause was undertaken to ensure that we were operating the correct site and that appropriate preoperative antibiotics had been given. All staff in the room were in agreement, and we proceeded. The acromion AC joint clavicle and coracoid were marked with a surgical pen. A planned incision starting at the level of the clavicle and extending distally over the deltopectoral interval approximately 1 cm lateral to the coracoid was marked with a surgical pen. The incision was then made with a 10-blade scalpel. Dissection was carried down sharply to the deltoid fascia. The deltopectoral interval was then identified at the level of clavicle. A small band retractor was then placed under the proximal deltoid. I then released the deltoid fascia on the lateral aspect of the cephalic vein. The vein was preserved and left in its bed medially. The cephalic vein was protected throughout the entire case. I then identified the clavipectoral fascia. This was incised proximally to the level of the coracoacromial ligament. The coracoacromial ligament was left intact. I then used my finger to spread the interval between the conjoint tendon and the subscapularis. I felt for the axillary nerve which was readily palpable. I then cleared the subacromial and subdeltoid spaces of bursal and scar tissue. I then utilized a brown retractor to hold the deltoid and expose the humeral head. I then proceeded to release the subscapularis and anterior inferior shoulder capsule. The rotator cuff was inspected. She did have a tear in the anterior supraspinatus. This was a full-thickness tear. The rotator interval was identified. The course of the biceps tendon was also identified. I then released the rotator interval. It was released at the base of the coracoid and then out laterally. The subscapularis and capsule were also released intertendinously. The subscapularis and capsule release extended distally in a lazy-S fashion approximately 1 cm medial to the biceps tendon. I then continued to release the capsule along the inferior neck in a vertical fashion to approximately the 6 o'clock position. Great care was taken to ensure the capsule was always visualized as it was released as to avoid injuring the axillary nerve root. I then brought a Hernandez grinder operator automatic with the arm externally rotated and abducted. I continued to release the capsule inferomedially to approximately the 4 o'clock position. The inferior osteophytes were now removed as well. This was done with a rongeur. I then proceeded with preparation of the humerus. I removed all the goat's mederos osteophytes. I then removed the subchondral plate from the superior aspect of the humeral head utilizing a large rongeur. I then used a starting reamer to gain access to the humeral canal. This was approximately 1 cm medial to the rotator cuff insertion and 1 cm posterior to the bicipital groove. I then prepared the humeral canal with hand reaming. I started with a 6 mm reamer incrementally and progressed in 1 mm increments until firm resistance was encountered. This was at 10 mm. The reamer handle was then left in place. I then utilized a humeral resection guide. This was set at 30 degrees of retrotorsion. The cutting block was then set at the insertion of the rotator cuff. I then proceeded to osteotomize the head utilizing an oscillating saw. I removed the resection guide and then completed the osteotomy. I then proceeded with trial stem placement. I then breached up to a size 10 broach in the canal starting with a 6-mm broach and incrementally increasing up to a 10-mm broach. The 10-mm trial stem was then left in place. At this point, I did release the biceps tendon. This was tenotomized at the level of the superior labrum. A bone hook was then used to pull the humerus out laterally. I inspected the joint for any loose bodies. She did have 1 small loose body which was removed. Again, she did have rotator cuff tear. I made a decision at this point to proceed with a reverse glenohumeral arthroplasty. The Bhattman retractors were then placed on the posterior glenoid rim. The arm was placed approximately 80 degrees of abduction and in slight flexion on the Hernandez stand. I then proceeded to remove the hypertrophic labrum to definitively identify the actual glenoid. At this point, I was able to easily visualize the Dutoit staple. This was in the anterior glenoid neck about midway up the glenoid. We did use the broken screw removal set to remove it. It was very difficult to remove. I did end up having to utilize a micro curette to curette around the staple before we were ultimately able to remove it. Fortunately, we were able to remove the staple with very minimal to no damage to the glenoid itself. I then proceeded with placement of the central pin. The mini base plate guide was then placed and the pin was placed just slightly inferior of center in 10 degrees of inferior tilt. She did have fairly significant posterior glenoid wear. I then used a mini base plate reamer. It was reamed as minimal as possible as to fully seat the glenosphere. Again, she did have posterior and posterior superior glenoid bone loss. I did put the small augment trial over the pin. The small augment fit flush with the glenoid. I had the retail sales representative open a [employer] small augment mini base plate. The augmented part of the base plate was then placed posterior to posterior superior, it was then impacted onto the actual glenoid. It had a very snug fit. I then proceeded with placing the central screw. A 30-mm central screw was then placed. She had excellent bone quality and the central screw had very good purchase in bone. When the screw was fully seated, I was able to rotate the scapula through the screwdriver. I then checked to make sure that the screw was fully seated and it was with relation to the surface of the base plate. I then proceeded with placing the peripheral screws. The inferior screw was a 25-mm locking screw. The posterior screw was a 15 mm screw and the superior screw was a 15-mm screw. I did not place an anterior screw as it would have gone right where the track of the staple. I then had the retail sales representative open a 36-mm standard glenosphere. I slightly offset it inferiorly. The Porras taper was dried and the glenosphere was impacted onto the actual glenoid. I then proceeded to trial. We started with a standard base plate standard poly trial. The shoulder was reduced. It was a mildly difficult reduction. It was stable throughout a full range of motion. There was no impingement noted. I made a decision to proceed with a standard base plate standard poly. The shoulder was then carefully redislocated. The wound was thoroughly irrigated with sterile saline solution, antibiotic added via pulse lavage. We also utilized the Aricept antiseptic solution at this point in time. I had the retail sales representative open a [employer] size 10 mini stem, a standard tray and a standard poly for 36 mm glenosphere. The stem was then impacted into the humeral canal. It had a very tight fit. This was done in approximately 30 degrees of retrotorsion. The Porras taper was dried and then the tray standard poly was impacted onto a dry Porras taper at the real stem. The shoulder was then again reduced. Again, it was a mildly difficult reduction. It was very stable throughout a full range of motion. There was no impingement noted. I then felt for the axillary nerve which was readily palpable and intact. At this point, we proceeded with closure. The wound was again thoroughly irrigated with sterile saline solution, antibiotic added via pulse lavage. I used the remaining IrriSept solution as well at this time. We then placed a 500 mg of vancomycin powder deep. The deltopectoral was reapproximated with 0 Vicryl interrupted suture. The subcutaneous layer was then again thoroughly irrigated. The remaining 500 mg of vancomycin powder was then placed subcutaneously. The subcutaneous tissue was closed with 2-0 Vicryl interrupted suture and the skin was closed with a running 3-0 Quill suture. Dermabond was applied to the incision. Sterile dressing was applied and the patient's right upper extremity was placed in a standard sling. All sponge and needle counts were deemed correct prior to closure. The patient tolerated the procedure without apparent complication. She was transferred to recovery room in stable condition. MMODL / IJN: [id number] /
--- NOTE | 2024-03-08 10:48 | XR ---
Geetha Blackwood ID: [id number] : 1945 EXAMINATION TYPE: XR shoulder limited 1 view RT DATE OF EXAM: 03/01/2024 Comparison: None Clinical History: 79-year-old female postop right shoulder Findings: Image shows placement of reverse right total shoulder plasty. Severe and humeral stem components of t he prosthesis are well seated without periprosthetic fracture. Alignment appears appropriate. There i s patchy opacity partially visualized at the right lower lung. Soft tissue air relating to the patien t's recent operation. Impression: 1. Uncomplicated postoperative appearance reverse right total shoulder arthroplasty. 2. Partially visualized patchy opacity at the right lower lung. Correlate for any acute respiratory s ymptoms. Dedicated chest radiograph if indicated.
== END 2024-03-02 13:31 | disposition home or self-care (01) ==
LOC: OR 11:40 → 4SSUR 11:41 → OR 03-02 13:35
PROVIDERS: ADMIT Orthopaedic Surgery Sports Medicine; ATTEND Orthopaedic Surgery Sports Medicine
DX: M19.011 Primary osteoarthritis, right shoulder (principal); M75.101 Unspecified rotator cuff tear or rupture of right shoulder, not specified as traumatic; M24.011 Loose body in right shoulder; M79.5 Residual foreign body in soft tissue; I10 Essential (primary) hypertension; E78.5 Hyperlipidemia, unspecified; J45.909 Unspecified asthma, uncomplicated; E03.9 Hypothyroidism, unspecified; E11.9 Type 2 diabetes mellitus without complications; Z79.1 Long term (current) use of non-steroidal anti-inflammatories (NSAID); Z79.84 Long term (current) use of oral hypoglycemic drugs; Z79.890 Hormone replacement therapy; Z79.899 Other long term (current) drug therapy
CPT/HCPCS: 64415

== ENCOUNTER → 2024-11-23 | Outpatient (CLI) | payer MEDICARE ==
--- NOTE | 2024-11-23 14:51 | US ---
EXAMINATION TYPE: US arterial LE single level DATE OF EXAM: 11/23/2024 2:08 PM COMPARISONS: None. CLINICAL INDICATION: Female, 79 years old with history of I73.9 PERIPHERAL ARTERIAL DISEASE; screenin g pressures shown possible decrease on the left, no symptoms, patient is very active TECHNIQUE: Systolic pressures were taken of the upper and lower extremity arteries with ankle-brachia l indices and toe brachial indices calculated bilaterally. History of: Smoker: n Hypertension: y Diabetic: n Hyperlipidemia: y TIA/CVA: n Previous Vascular Surgery: n CAD: n IN: n Vascular Ulcers: n Claudication: n Gangrene: n FINDINGS: Doppler Waveforms: Right: Multiphasic Left: Multiphasic Brachial Artery systolic pressure: Right: 153 Left: 144 Posterior Tibial artery systolic pressure: Right: 161 Left: 157 Dorsalis Pedis artery systolic pressure: Right: 155 Left: 167 Ankle-Brachial Indices: Right: 1.1 Left: 1.1 IMPRESSION: SRIKANTH: Right: Normal 0.9 - 1.4, Recommendation: None Left: Normal 0.9 - 1.4, Recommendation: None [facility], , 11/23/2024 2:48 PM
== END | disposition home or self-care (01) ==
LOC: RADUSWWP 13:28
PROVIDERS: ATTEND Family Medicine
DX: I73.9 Peripheral vascular disease, unspecified (principal)
CPT/HCPCS: 93922

== ENCOUNTER → 2024-12-26 | Outpatient (CLI) | payer MEDICARE ==
--- NOTE | 2024-12-26 16:12 | US ---
EXAMINATION TYPE: US pelvis complete transvag DATE OF EXAM: 12/26/2024 COMPARISON: US & CT CLINICAL INDICATION: Female, 79 years old with history of N83.0 CYST OF OVARY, N94.89; F/U cyst right ovary, fluid within endo canal TECHNIQUE: Transvaginal (TV) and Transabdominal (TA) . Transabdominal grayscale sonographic images of the pelvis were acquired. Transvaginal sonographic im ages were medically necessary to better assess the following anatomy: TV ordered per physician Doppler imaging: Not performed. FINDINGS: Date of LMP: Pt is postmenopausal x many years EXAM MEASUREMENTS: Uterus: 4.7 x 2.3 x 3.7 cm Endometrial Stripe: 0.3 cm Right Ovary: 3.0 x 2.5 x 2.2 cm Left Ovary: 1.5 x 1.2 x 1.1 cm 1. Uterus: Retroverted Small in size, peripheral calcifications as visualized on prior- wnl for post menopausal age 2. Endometrium: Thickness similar to prior, slight increase in fluid within canal when compared to p rior 3. Right Ovary: Simple cyst as visualized since 2021= 2.3 x 2.1 x 1.9 cm, most recent prior size= 2. 2 x 2.0 x 2.1 cm 4. Left Ovary: wnl 5. Bilateral Adnexa: wnl 6. Posterior cul-de-sac: wnl IMPRESSION: 1. No evidence for acute process. 2. Endometrium within normal limits for thickness. 3. Simple appearing ovarian cyst not significantly changed given differences in technique back to . [facility], , 12/26/2024 4:10 PM
== END | disposition home or self-care (01) ==
LOC: RADUSWWP 14:51
PROVIDERS: ATTEND Obstetrics & Gynecology
DX: N83.01 Follicular cyst of right ovary (principal); N94.89 Other specified conditions associated with female genital organs and menstrual cycle
CPT/HCPCS: 76830; 76856